=== PATIENT | female | born 1995 | race Caucasian/White ===

== ENCOUNTER 2022-04-30 08:44 | Emergency (ER) | payer BC, SELFPAY ==
--- NOTE | 2022-04-30 08:48 | ED.URI ---
HPI - URI/Sore Throat General Chief Complaint: Upper Respiratory Infection Stated Complaint: cold sx/sob Time Seen by Provider: 04/30/22 08:48 Source: patient Mode of arrival: ambulatory Limitations: no limitations History of Present Illness HPI Narrative: Ashley is a 26-year-old female patient presenting to the clinic today with complaints of cough, runny nose, and shortness of breath x1.5 weeks. She reports she has a history of asthma and she feels as though her chest is becoming more tight and is had bringing up some mucus. States that she is out of her albuterol inhaler and she is unable to get into her primary care at this time. Is having wheezing at nighttime. she denies any fever or chills. She denies any chest pain MD elicited complaint: cough, nasal congestion and other (Shortness of breath) Related Data Home Medications Medication Instructions Recorded Confirmed albuterol 2 puff inhalation DIRECTED 04/30/22 04/30/22 Allergies Allergy/AdvReac Type Severity Reaction Status Date / Time No Known Allergies Allergy Mild Verified 04/30/22 08:56 lactose Allergy Unknown Nausea Verified 04/30/22 08:56 montelukast Allergy Unknown severe Verified 04/30/22 08:56 headaches NKFA Allergy Mild Other Uncoded 04/30/22 08:56 Review of Systems Review of Systems: Pertinent positives per HPI. Patient denies any fever, chills, rash, headache, visual changes, dizziness, chest pain, palpitations, nausea, vomiting, diarrhea, constipation, abdominal pain, or any urinary issues. PMFSH Comments At the time of my signature, I reviewed and agree with the nursing past medical, surgical, social, and family history. There is no relevant family history pertinent to the patient complaint. Exam Narrative: General: Well-developed, well nourished, in no apparent distress Head: Normocephalic, atraumatic Eyes: Pupils equally round and reactive to light bilaterally, EOM intact, sclera and conjunctive clear, no discharge, lids normal Ears: TMs intact and clear, ear canals clear, no drainage, grossly hearing normal. Nose: Nares patent, clear nasal discharge, mild inflammation, no sinus tenderness. Mouth: Oral pharynx without lesions or masses, good dentition, MMM. Neck: Supple, trachea midline, no enlargement of anterior or posterior cervical nodes, no thyroid masses or goiter palpable. Cardio: Regular rate and rhythm, s1 and s2 normal, no murmur appreciated. Resp: Faint expiratory wheeze and the right mid lobe, no rhonchi, rales, or rubs Course Course Emergency Course: Portions of this record may have been created with voice recognition software. Level of Care: Express Care Visit Vital Signs Vital signs: Vital Signs Temperature 37.1 C 04/30/22 08:57 Pulse Rate 83 04/30/22 08:57 Respiratory Rate 20 04/30/22 08:57 Blood Pressure 153/86 H 04/30/22 08:57 Pulse Oximetry 98 04/30/22 08:57 Oxygen Delivery Room Air 04/30/22 08:57 Temperature 37.1 C 04/30/22 08:57 Pulse Rate 83 04/30/22 08:57 Respiratory Rate 20 04/30/22 08:57 Blood Pressure 153/86 H 04/30/22 08:57 Pulse Oximetry 98 04/30/22 08:57 Oxygen Delivery Room Air 04/30/22 08:57 Vital signs reviewed MDM - URI/Sore Throat MDM Narrative Medical decision making narrative: At the time of visit patient is resting comfortably on exam table. I suspect the patient has bronchitis. Prescription for albuterol and prednisone was sent to the pharmacy and supportive measures were discussed with the patient she voiced understanding of discharge instructions and agrees to treatment plan. Differential Diagnosis Differential diagnosis: Likely upper respiratory infection, sinusitis, viral infection, bronchitis, influenza, pharyngitis and other (COVID) Discharge Plan Discharge Clinical Impression: Bronchitis Patient Disposition: Home, Self-Care Condition: Stable Instructions: Antibiotic Form, Acute Bronchitis (ED) Additional Inst
[2022-04-30 08:57] VITALS: BP 153/86; PULSE 83; RESP 20; TEMP 37.1; O2SAT 98
== END 2022-04-30 09:06 | disposition home or self-care (01) ==
PROVIDERS: Emergency Provider Nurse Practitioner Family
DX: J40 Bronchitis, not specified as acute or chronic (principal)
CPT/HCPCS: 99213; G0463

== ENCOUNTER 2022-06-14 08:46 | Outpatient (CLI) | payer BC, SELFPAY ==
--- NOTE | 2022-06-14 12:55 | WPDPFTINT ---
PFT Procedure Performed PFT Procedure Performed Spirometry with Pre/Post Bronchodilator Plethysmography (Lung Vol) Diffusing Cap (DLCO) Flow Vol Loop PFT Interpretation Lung volumes were measured with the body plethysmography method. Lung volumes are unremarkable. Spirometry showed normal forced vital capacity and FEV1, diminished mid-expiratory flow rates and a diminished FEV1 to FVC ratio of 72% suggestive of obstructive airway disease. Following administration of a bronchodilator there was significant increase in the FEV1. The flow-volume loop is consistent with obstructive airway disease. Lung diffusion capacity is within the normal range at 96% predicted. The flow-volume loop is unremarkable. Impression: Mild obstructive airway disease with significant response to bronchodilators on this testing. Lung diffusion capacity within the normal range.
== END 2022-06-14 08:47 | disposition home or self-care (01) ==
LOC: ANHPFT 08:47
PROVIDERS: PCP Family Medicine; Visit Provider Family Medicine
DX: J45.909 Unspecified asthma, uncomplicated (principal); R94.2 Abnormal results of pulmonary function studies
CPT/HCPCS: 94060; 94726; 94729

== ENCOUNTER 2022-10-16 10:08 | Emergency (ER) | payer BC, SELFPAY ==
--- NOTE | 2022-10-16 10:14 | ED.UPPEXIN ---
HPI - Extremity Injury (Upper) General Chief Complaint: Extremity Problem,Nontraumatic Stated Complaint: Right Shoulder Pain Time Seen by Provider: 10/16/22 10:56 Source: patient and RN notes reviewed Mode of arrival: ambulatory Limitations: no limitations History of Present Illness HPI narrative: 26-year-old female presents with concern for one-month history of right shoulder pain. She reports pain started gradually. 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 Reports she has been taking Tylenol with some relief. She denies any redness, warmth. Denies fever. She reports in the morning after she wakes up she has some tingling in her 1st and 2nd digits. MD complaint: injury to: right and shoulder Related Data Home Medications Medication Instructions Recorded Confirmed cetirizine 10 mg tablet (Zyrtec) 10 mg PO DAILY PRN ALLERGIES 06/27/22 10/16/22 fluticasone propionate 50 2 spray intranasal DAILY 06/27/22 10/16/22 mcg/actuation nasal spray,suspension (Children's Flonase Allergy Relief) Allergies Allergy/AdvReac Type Severity Reaction Status Date / Time APPLES Allergy Other Uncoded 10/16/22 10:29 Review of Systems Review of Systems: CONSTITUTIONAL: Denies malaise, chills, sweats, or fever. SKIN: Denies rash or itching, open skin, laceration, abrasion, redness, warmth, swelling. MUSCULOSKELETAL: Reports right shoulder pain NEUROLOGIC: Denies numbness, weakness All systems reviewed & are unremarkable except as noted in HPI and below PMFSH Past Medical History Medical History History of gestational diabetes (~2019) History of pre-eclampsia (~2019) Seasonal allergies Seasonal asthma Vitamin D deficiency Social History Social History Smoking status: Never smoker Alcohol intake: current Substance use: never Substance use type: does not use Lack of Transportation: No Lack of Food: Never True Current Housing: I Have Housing Concerned About Future Housing: No Difficulty Paying Gas/Electric Bills: No Difficulty Paying for Meds: No Currently Unemployed: No Education: High School Diploma/GED Difficulty w/ Childcare or Family Care: No Living arrangements: with family Occupation/Education: occupation Gender identity (if verbalized by the patient): Female Agree to blood products: Yes Comments At time of signature, agree with nursing past medical, surgical, social and family history. There is no relevant family history pertinent to the presenting complaint Exam Narrative: GENERAL: Well-appearing, well-nourished, and in no acute distress. HEAD: Normocephalic, atraumatic. EYES: PERRLA, conjunctivae clear NECK: Supple. CHEST: Speaks in full sentences. No respiratory distress. HEART: Regular rate and rhythm. Normal and equal peripheral pulses. EXTREMITIES: Right shoulder has grossly normal strength and sensation, normal range of motion limited. No edema or ecchymosis. 5/5 strength with shoulder abduction adduction. Normal sensation with sensitivity to light touch and pain. Lateral shoulder tenderness. No open wounds, no skin tenting, no devitalized tissue or atrophy, no trophic changes, no obvious deformity, alignment normal, nearby joints and structures intact. Distal pulses palpable and equal bilaterally, skin warm, dry, pink. Capillary refill less than 3 seconds. SKIN: Warm, dry, no rash. NEURO: Alert and oriented x3. PSYCH: Normal mood and affect Course Course Emergency Course: Patient is aware of diagnosis, understands and agrees to treatment plan. Anticipatory guidance given. Patient agrees to follow-up as directed and is aware of reasons to seek care at the emergency department. Portions of this record may have been created with voice recognition software Level of Care: Express
[2022-10-16 10:22] VITALS: BP 135/82; PULSE 81; RESP 16; TEMP 37.3; O2SAT 100
== END 2022-10-16 11:06 | disposition home or self-care (01) ==
PROVIDERS: Emergency Provider Nurse Practitioner; PCP Family Medicine
DX: M25.511 Pain in right shoulder (principal); J45.909 Unspecified asthma, uncomplicated; E55.9 Vitamin D deficiency, unspecified
CPT/HCPCS: 99213; G0463

== ENCOUNTER 2023-03-10 14:43 | Outpatient (CLI) | payer BC, SELFPAY ==
--- NOTE | ~2023-03-10 | XR_ITS ---
EXAMINATION: XR chest 2V DATE: 03/10/2023 15:00 INDICATION: Acute upper respiratory infection TECHNIQUE: AP and lateral views of the chest are obtained. COMPARISON: None available FINDINGS: The lungs are free of acute opacities. No pleural effusion or pneumothorax. The cardiomedia stinal silhouette is normal. The visualized bones and soft tissues are unremarkable. IMPRESSION: 1. No acute cardiopulmonary abnormality. Reviewed, dictated and finalized at location F. O INTENSIVIST PHYSICIAN
[2023-03-10 16:25] LABS: Influenza A QL RT-PCR Negative (Negative); Influenza B QL RT-PCR Negative (Negative); RSV RNA, RT-PCR Negative (Negative); SARS-CoV-2 RNA PCR Negative (Negative)
== END 2023-03-10 14:44 | disposition home or self-care (01) ==
PROVIDERS: PCP Family Medicine; Visit Provider Family Medicine
DX: J06.9 Acute upper respiratory infection, unspecified (principal); Z20.822 Contact with and (suspected) exposure to COVID-19
CPT/HCPCS: 71046; 87637

== ENCOUNTER 2023-05-27 12:10 | Inpatient (IN) | payer MEDICAID, SELFPAY ==
[2023-05-27] VITALS (26 sets, daily range): BP systolic 121–175; BP diastolic 59–89; PULSE 88–116; RESP 16–36; TEMP 36.6–36.9; O2SAT 95–100; BMI 31.2
--- NOTE | ~2023-05-27 | US_ITS ---
EXAMINATION: US OB transvaginal INDICATION: preg of indetermined location TECHNIQUE: Sonography of the pelvis was performed by transabdominal and transvaginal techniques. COMPARISON: None. RESULT: Uterus: 9.2 x 5.6 x 6.6 cm. Anteverted, slightly retroflexed. Homogenous myometrium. The cervix is l mode and closed. Intrauterine gestational sac: Single present. Yolk sac is visualized. Embryo: Single present. [place] rump length: 0.43 cm, corresponding gestational age 6 weeks, 1 days. Gestational heart rate: present 115 bpm. Subgestational hematoma: Present encompassing approximately 30% of the gestational sac surface area . Right ovary: 4.1 x 3.1 x 3.3 cm. Vascular flow is present. Corpus luteal cyst. Left ovary: Obscured by bowel gas. Pelvis free fluid: None. IMPRESSION: Single, live intrauterine gestation.. Heart rate 115 bpm. Moderate subchorionic hemorrhage. Estimated Gestational Age: 6 weeks, 1 days by crown rump length. KELLY by ultrasound 01/19/2024. Reviewed, dictated and finalized at location K. IMPRESSION: Single, live intrauterine gestation.. Heart rate 115 bpm. Moderate subchorionic hemorrhage. Estimated Gestational Age: 6 weeks, 1 days by crown rump length. KELLY by ultras ound 01/19/2024.
--- NOTE | ~2023-05-27 | XR_ITS ---
XR chest 1V portable DATE: 05/27/2023 16:49 INDICATION: Pain TECHNIQUE: Single portable AP chest on May 27, 2023 at 1640 hours COMPARISON: 03/10/2023 2 view chest FINDINGS: Normal heart size. No hilar or mediastinal enlargement. No pulmonary consolidation, pleural effusion or pneumothorax. Pulmonary vascularity appears within upper normal range. Included skeletal structures are unremarkable. IMPRESSION: No active disease Reviewed, dictated and finalized at location B. IMPRESSION: No active disease
[2023-05-27] MEDS: ALBUTEROL SULFATE NEB 2.5 MG/3 ML INH INHALATION ×4 (12:46→16:19)
[2023-05-27] MEDS: IPRATROPIUM 0.5 MG/ALBUTEROL SULFATE 2.5 MG AMPUL.NEB 3 ML INHALATION ×2 (12:46→20:16)
--- NOTE | 2023-05-27 14:34 | ED.ASTHMA ---
HPI - Asthma General Chief Complaint: Asthma Stated Complaint: asthma Time Seen by Provider: 05/27/23 13:14 Source: patient Mode of arrival: ambulatory Limitations: no limitations History of Present Illness HPI Narrative: Patient presents with shortness of breath. She believes she is having an asthma exacerbation. Symptoms started approximately 7 or 8 pm and she ran out of her inhaler today. She has been having a cough and her chest feels tight and she can hear herself wheeze. She recently had a head cold . At baseline her asthma is well controlled usually only requiring occasional albuterol inhaler. She states she had previously been on a medication with a purple disc but this had been discontinued as her primary care physician believed that her asthma was allergy mediated so rather she is managed on nasal sprays and an [id number] allergy medication. She denies smoking. She has never required BiPAP or intubation for asthma exacerbation. Of note, patient had a positive home test. Her IUD was removed on 04/03/2023 and she did not have an interval menstrual period before becoming . She denies any abdominal pain, cramping, vaginal bleeding and has an appointment on Friday to establish care with coater operator insulation board Ramone/Mónica Tanner. Related Data Home Medications Medication Instructions Recorded Confirmed cetirizine 10 mg tablet (Zyrtec) 10 mg PO DAILY PRN ALLERGIES 06/27/22 05/27/23 Allergies Allergy/AdvReac Type Severity Reaction Status Date / Time APPLES Allergy Other Uncoded 05/27/23 12:30 [facility] Past Medical History Medical History History of gestational diabetes (~2019) History of pre-eclampsia (~2019) Seasonal allergies Seasonal asthma Vitamin D deficiency Family History Family History Sibling Asthma Social History Social History Smoking status: Never smoker Alcohol intake: never Substance use: never Substance use type: does not use Lack of Transportation: No Lack of Food: Never True Current Housing: I Have Housing Concerned About Future Housing: No Difficulty Paying Gas/Electric Bills: No Difficulty Paying for Meds: No Currently Unemployed: No Education: High School Diploma/GED Difficulty w/ Childcare or Family Care: No Living arrangements: with family Occupation/Education: occupation Gender identity (if verbalized by the patient): Female Spiritual care concerns: No Agree to blood products: Yes Exam Narrative: GENERAL: Well-appearing, well-nourished, HEAD: Normocephalic, atraumatic. EYES: Non injected, non icteric ENT: Nares clear, no rhinorrhea or epistaxis. NECK: Supple. CHEST: Diffuse bilateral wheezes on auscultation. Movign good air but tachypneic, RR 24-30. HEART: Tachycardic rate and rhythm. . ABDOMEN: Soft, nondistended. EXTREMITIES: Normal range of motion. No edema. SKIN: Warm, dry, no rash. NEURO: No focal deficits. Alert and oriented x3. PSYCH: Normal mood and affect. Course Vital Signs Vital signs: Vital Signs Temperature 97.8 F 05/27/23 12:16 Pulse Rate 110 H 05/27/23 12:16 Respiratory Rate 16 05/27/23 12:16 Blood Pressure 175/59 H 05/27/23 12:16 Pulse Oximetry 99 05/27/23 12:16 Oxygen Delivery Room Air 05/27/23 12:16 Temperature 97.5 F L 05/28/23 08:00 Pulse Rate 89 05/28/23 10:00 Respiratory Rate 21 H 05/28/23 09:14 Blood Pressure 127/67 05/28/23 08:00 Pulse Oximetry 98 05/28/23 08:29 Oxygen Delivery High Flow Nasal Cannula 05/28/23 08:29 Oxygen Flow Rate 9 05/28/23 08:29 Fraction of Inspired Oxygen 40 05/28/23 08:00 MDM - Asthma MDM Narrative Medical decision making narrative: The patient presented with cough and expiratory wheezing most likely due to asthma exacerbation. It is a m
[2023-05-27] MEDS: predniSONE 20 MG TABLET 40 MG PO (15:10)
[2023-05-27 16:56] LABS: Basophils Absolute Auto 0.1 K/mm3 (0.0-0.1); Basophils Percent Auto 0.5 % (0.2-1.2); Eosinophils Absolute Auto 0.4 K/mm3 (0-0.3); Eosinophils Percent Auto 3.6 % (0-4.4); Hematocrit 41.3 % (37.0-47.0); Immature Granulocyte Absolute 0.05 K/mm3 (0.00-0.031); Immature Granulocyte Percent A 0.4 % (0-0.5); Lymphocytes Absolute Auto 2.14 K/mm3 (0.9-3.2); Lymphocytes Percent Auto 17.7 % (18.3-44.2); Mean Corpuscular HGB Conc 33.9 g/dl (32-36); Mean Corpuscular Hemoglobin 29.5 pg (26-34); Mean Corpuscular Volume 87.1 fl (80-100); Mean Platelet Volume 10.3 fl (7.4-10.4); Monocytes Absolute Auto 0.5 K/mm3 (0.1-0.6); Monocytes Percent Auto 4.3 % (2.6-8.5); Neutrophils Absolute Auto 8.9 K/mm3 (1.3-6.7); Neutrophils Percent Auto 73.5 % (45.5-73.1); Platelet Count Result 258 k/mm3 (150-375); Red Blood Count 4.74 M/mm3 (4.2-5.4); Red Cell Distribution Width 13.7 % (11.5-14.5); White Blood Count 12.1 K/mm3 (4.5-10.0)
[2023-05-27 17:10] LABS: Anion Gap 9 mmol/L (4-12); Blood Urea Nitrogen 7 mg/dL (7-17); Calcium 9.6 mg/dL (8.4-10.2); Carbon Dioxide 20 mmol/L (22-30); Chloride 106 mmol/L (98-107); Estimated CRCL calculation 123 ml/min; Estimated Glomerular Filt Rate > 60; Glucose 115 mg/dL (65-110); Magnesium 2.1 mg/dL (1.6-2.3); Potassium 3.4 mmol/L (3.4-5.0); Sodium 135 mmol/L (137-145)
[2023-05-27] MEDS: MAGNESIUM SULF 1 GM/D5W 100 ML 1 GM/100 ML BAG IVPB (17:25)
[2023-05-27 17:32] LABS: Influenza A QL RT-PCR Negative (Negative); Influenza B QL RT-PCR Negative (Negative); RSV RNA, RT-PCR Negative (Negative); SARS-CoV-2 RNA PCR Negative (Negative)
[2023-05-27 17:36] LABS: D Dimer < 0.27 ug/mL (<0.48)
[2023-05-27] MEDS: ALBUTEROL SULFATE NEB 2.5 MG/3 ML INH 10 MG INHALATION (18:00)
--- NOTE | 2023-05-27 19:15 | PC.NURSE ---
Report given to Trudy ERICKSON, all questions answered.
--- NOTE | 2023-05-27 19:27 | PM.IMHP ---
H&P: HPI History of Present Illness Date/Time: 05/27/23 19:27 Chief Complaint: Short of breath Narrative: 27 years old a day with history of asthma, present ED with a chief complaint of cough, shortness a breath. Patient has been having cough in past 2 days, and developed shortness today. Patient denies fever, chills. Patient came to ED for evaluation and treatment, upon arrival in the ED, patient was afebrile, pressure stable. Patient was found have hypoxemia, and labored breathing. Patient received multiple treatments with albuterol and Atrovent nebulizer, magnesium sulfate, prednisone 40 mg 1 dose. Patient still had significant dyspnea, patient was placed on BiPAP. Labs showed leukocytosis 12,100, bicarbonate 20, hCG 18764. Patient states her intrauterine device was removed, and her last menstrual period was on April 03. Flu and COVID test negative. Chest x-ray shows no acute cardiopulmonary issues. Patient denies history of intubation for asthma exacerbation Review of Systems Review of Systems: ROS negative except above [facility] Past Medical History Medical History History of gestational diabetes (~2019) History of pre-eclampsia (~2019) Seasonal allergies Seasonal asthma Vitamin D deficiency Social History Social History Smoking status: Never smoker Alcohol intake: current Substance use: never Substance use type: does not use Lack of Transportation: No Lack of Food: Never True Current Housing: I Have Housing Concerned About Future Housing: No Difficulty Paying Gas/Electric Bills: No Difficulty Paying for Meds: No Currently Unemployed: No Education: High School Diploma/GED Difficulty w/ Childcare or Family Care: No Living arrangements: with family Occupation/Education: occupation Gender identity (if verbalized by the patient): Female Agree to blood products: Yes Meds Home Medications and Allergies Home Medications Medication Instructions Recorded Confirmed Type cetirizine 10 mg tablet (Zyrtec) 10 mg PO DAILY PRN ALLERGIES 06/27/22 02/11/23 History cyclobenzaprine 10 mg tablet 10 mg PO TID PRN muscle spasm #20 10/16/22 02/11/23 Rx tabs ibuprofen 800 mg tablet 800 mg PO Q6H PRN pain #30 tabs 10/16/22 02/11/23 Rx fluticasone 250 mcg-salmeterol 50 1 inh inhalation BID #60 ea 11/08/22 02/11/23 Rx mcg/dose blistr powdr for inhalation (Advair Diskus) albuterol sulfate 90 mcg/actuation 2 puff inhalation Q4-6H PRN 02/13/23 Rx aerosol inhaler shortness of breath or wheezing 30 days #8.5 grams azithromycin 250 mg tablet See Rx Instructions PO .COMPLEX #6 03/11/23 Rx (Zithromax Z-Jermaine) tabs fluticasone propionate 50 2 spray intranasal DAILY #16 grams 03/11/23 Rx mcg/actuation nasal spray,suspension (Children's Flonase Allergy Relief) Allergies Allergy/AdvReac Type Severity Reaction Status Date / Time APPLES Allergy Other Uncoded 05/27/23 12:30 Vital Signs Vital Signs - 24 hr 05/27/23 12:16 05/27/23 12:28 05/27/23 12:28 Temperature 97.8 F 97.9 F Pulse Rate 110 H 103 H 108 H Respiratory Rate 16 18 Blood Pressure 175/59 H 166/89 H Pulse Oximetry 99 97 Oxygen Delivery Room Air Room Air 05/27/23 12:28 05/27/23 12:34 05/27/23 12:35 Temperature Pulse Rate Respiratory Rate Blood Pressure Pulse Oximetry 99 97 97 Oxygen Delivery Room Air Room Air Room Air 05/27/23 12:46 05/27/23 13:01 05/27/23 14:52 Temperature Pulse Rate 99 102 H 107 H Respiratory Rate 21 H 22 H 21 H Blood Pressure Pulse Oximetry Oxygen Delivery 05/27/23 14:30 05/27/23 14:55 05/27/23 15:07 Temperature Pulse Rate 97 108 H Respiratory Rate 16 22 H Blood Pressure 122/69 Pulse Oximetry 97 98 Oxygen Delivery Room Air 05/27/23 15:11 05/27/23 16:04 05/27/23 16:19 Temperature Pulse Rat
[2023-05-27 19:59] LABS: Alveolar/Arterial O2 Gradient 166.7 mmHg; Base Excess ABG -3.6 mEq/l (+/-2.0); Fractional Inspired Oxygen 40 %; HCO3 ABG 18.2 mEq/l (22.0-26.0); Oxygen Content ABG 19.8 %vol (16.0-22.0); Oxygen Saturation ABG 97.4 % (95.0-100.0); Oxyhemoglobin 95.6 % THb (90.0-100.0); PCO2 ABG 25.4 mmHg (35.0-45.0); PO2 ABG 89.3 mmHg (80.0-100.0); PO2 FiO2 Ratio Arterial Blood 2.23 %; Total Hemoglobin 14.7 g/dL (12.0-18.0); pH ABG 7.473 (7.350-7.450)
[2023-05-27] MEDS: MONTELUKAST SODIUM 10 MG TABLET PO (19:59)
[2023-05-27 20:01] LABS: Device BIPAP; Expiratory Pressure 7 cmH2O; Inspiratory Pressure 10 cmH2O; Modified Allen's Test Pass; Site Drawn RIGHT RADIAL
[2023-05-27] MEDS: BUDESONIDE RESPULE NEB 0.5 MG/2 ML AMP 0.75 MG INHALATION (20:16)
--- NOTE | 2023-05-27 21:42 | ADMIMU ---
2140: This patient, Ashley A Bouck, was admitted to IMU status, and placed in Intensive Care Unit-9. Patient/family oriented to hospital policies and: general routines including ID bracelet, bed and alarms, visiting hours, pain management, procedures, bathroom and other care routines, personal items, smoking policy, room service/diet, and visiting hours. Valuables list has been completed. Information on how to activate the Rapid Response Team has been discussed. Patient/Family are encouraged to report perceived risks to care and to ask questions if they do not understand what they are told or what they should do.
[2023-05-27] MEDS: SODIUM CHLORIDE 0.9% IV 1,000 ML 125 ML IV CONT (22:16)
[2023-05-27 22:42] LABS: Appearance Urine Cloudy (Clear); Bilirubin Urine Negative (Negative); Blood Urine Negative (Negative); Color Urine Yellow (Yellow); Glucose Urine UA Negative (Negative); Ketones Urine 3+ mg/dL (Negative); Leukocyte Esterase Ur Negative LEU/UL (Negative); Nitrate Urine Negative (Negative); Protein Urine 1+ mg/dL (Negative); Urobilinogen Urine 0.2 mg/dL (<2.0)
[2023-05-27 22:52] LABS: Bacteria Urine None Seen /hpf; Non Pathogenic Casts 0-2; RBC Urine 0-2 /hpf (0-2); Squamous Epithelial Cell Urine Occasional /hpf (Few); WBC Urine 0-5 /hpf (0-3)
[2023-05-27 23:08] LABS: Add Urine Microscopic? YES; Specific Grav Ur 1.034 (1.001-1.035)
[2023-05-28] VITALS (30 sets, daily range): BP systolic 123–140; BP diastolic 66–72; PULSE 64–105; RESP 18–33; TEMP 36.4–36.9; O2SAT 95–99
[2023-05-28 01:41] LABS: Glucose Point of Care 117 mg/dl (65-105)
[2023-05-28] MEDS: IPRATROPIUM 0.5 MG/ALBUTEROL SULFATE 2.5 MG AMPUL.NEB 3 ML INHALATION ×6 (02:13→23:17)
[2023-05-28 04:06] LABS: Hemoglobin 12.7 g/dL (12.0-15.0); Mean Corpuscular HGB Conc 31.8 g/dl (32-36); Mean Corpuscular Hemoglobin 28.9 pg (26-34); Mean Corpuscular Volume 91.1 fl (80-100); Mean Platelet Volume 10.4 fl (7.4-10.4); Platelet Count Result 269 k/mm3 (150-375); Red Blood Count 4.39 M/mm3 (4.2-5.4); Red Cell Distribution Width 13.4 % (11.5-14.5); White Blood Count 13.7 K/mm3 (4.5-10.0)
[2023-05-28 04:17] LABS: Anion Gap 8 mmol/L (4-12); Blood Urea Nitrogen 10 mg/dL (7-17); Carbon Dioxide 18 mmol/L (22-30); Chloride 107 mmol/L (98-107); Estimated CRCL calculation 123 ml/min; Estimated Glomerular Filt Rate > 60; Glucose 101 mg/dL (65-110); Magnesium 2.3 mg/dL (1.6-2.3); Potassium 3.8 mmol/L (3.4-5.0); Sodium 133 mmol/L (137-145)
[2023-05-28] MEDS: SODIUM CHLORIDE 0.9% IV 1,000 ML 125 ML IV CONT (06:08)
--- NOTE | 2023-05-28 07:08 | PM.IMHP ---
H&P: HPI History of Present Illness Date/Time: 05/28/23 07:08 Chief Complaint: Acute asthmatic exacerbation Narrative: 27-year-old 2 para 1 1st trimester seen through the ER with shortness of breath. She was begun on steroids and breathing treatments and is improving. Ultrasound shows normal 1st trimester as there was a concern of location following removal recently of an IUD. [facility] Past Medical History Medical History History of gestational diabetes (~2019) History of pre-eclampsia (~2019) Seasonal allergies Seasonal asthma Vitamin D deficiency Family History Family History Sibling Asthma Social History Social History Smoking status: Never smoker Alcohol intake: never Substance use: never Substance use type: does not use Lack of Transportation: No Lack of Food: Never True Current Housing: I Have Housing Concerned About Future Housing: No Difficulty Paying Gas/Electric Bills: No Difficulty Paying for Meds: No Currently Unemployed: No Education: High School Diploma/GED Difficulty w/ Childcare or Family Care: No Living arrangements: with family Occupation/Education: occupation Gender identity (if verbalized by the patient): Female Spiritual care concerns: No Agree to blood products: Yes Meds Home Medications and Allergies Home Medications Medication Instructions Recorded Confirmed Type cetirizine 10 mg tablet (Zyrtec) 10 mg PO DAILY PRN ALLERGIES 06/27/22 05/27/23 History albuterol sulfate 90 mcg/actuation 2 puff inhalation Q4-6H PRN 02/13/23 05/27/23 Rx aerosol inhaler shortness of breath or wheezing 30 days #8.5 grams fluticasone propionate 50 2 spray intranasal DAILY #16 grams 03/11/23 05/27/23 Rx mcg/actuation nasal spray,suspension (Children's Flonase Allergy Relief) Allergies Allergy/AdvReac Type Severity Reaction Status Date / Time APPLES Allergy Other Uncoded 05/27/23 12:30 Vital Signs Vital Signs - 24 hr 05/27/23 12:16 05/27/23 12:28 05/27/23 12:28 Temperature 97.8 F 97.9 F Pulse Rate 110 H 103 H 108 H Respiratory Rate 16 18 Blood Pressure 175/59 H 166/89 H Pulse Oximetry 99 97 Oxygen Delivery Room Air Room Air Fraction of Inspired Oxygen 05/27/23 12:28 05/27/23 12:34 05/27/23 12:35 Temperature Pulse Rate Respiratory Rate Blood Pressure Pulse Oximetry 99 97 97 Oxygen Delivery Room Air Room Air Room Air Fraction of Inspired Oxygen 05/27/23 12:46 05/27/23 13:01 05/27/23 14:52 Temperature Pulse Rate 99 102 H 107 H Respiratory Rate 21 H 22 H 21 H Blood Pressure Pulse Oximetry Oxygen Delivery Fraction of Inspired Oxygen 05/27/23 14:30 05/27/23 14:55 05/27/23 15:07 Temperature Pulse Rate 97 108 H Respiratory Rate 16 22 H Blood Pressure 122/69 Pulse Oximetry 97 98 Oxygen Delivery Room Air Fraction of Inspired Oxygen 05/27/23 15:11 05/27/23 16:04 05/27/23 16:19 Temperature Pulse Rate 112 H 109 H Respiratory Rate 23 H 20 Blood Pressure 129/85 Pulse Oximetry 97 95 Oxygen Delivery Room Air Fraction of Inspired Oxygen 05/27/23 16:27 05/27/23 17:29 05/27/23 17:29 Temperature Pulse Rate 116 H 96 Respiratory Rate 24 H 27 H Blood Pressure 130/75 Pulse Oximetry 99 98 Oxygen Delivery BiPAP Fraction of Inspired Oxygen 05/27/23 17:26 05/27/23 18:02 05/27/23 18:41 Temperature Pulse Rate 96 97 109 H Respiratory Rate 33 H 26 H 33 H Blood Pressure 121/77 Pulse Oximetry 99 100 Oxygen Delivery BiPAP Fraction of Inspired Oxygen 05/27/23 19:13 05/27/23 19:25 05/27/23 19:25 Temperature Pulse Rate 106 H 106 H Respiratory Rate 36 H 36 H Blood Pressure Pulse Oximetry 96 97 Oxygen Delivery Room Air BiPA
[2023-05-28] MEDS: MULTIVIT/MIN/PREN/FOL AC/IRON TABLET 1 TAB PO (08:26)
[2023-05-28] MEDS: BUDESONIDE RESPULE NEB 0.5 MG/2 ML AMP 0.75 MG INHALATION (08:49)
--- NOTE | 2023-05-28 09:09 | PM.IMPN ---
Progress Note: A&P Assessment and Plan (1) Acute respiratory failure with hypoxemia: Code(s): J96.01 - Acute respiratory failure with hypoxia Status: Acute (2) Asthma exacerbation: Code(s): J45.901 - Unspecified asthma with (acute) exacerbation Status: Acute (3) URI (upper respiratory infection): Qualifiers: URI type: unspecified URI Qualified Code(s): J06.9 - Acute upper respiratory infection, unspecified Code(s): J06.9 - Acute upper respiratory infection, unspecified Status: Acute (4) Sepsis: Code(s): A41.9 - Sepsis, unspecified organism Status: Acute (5) SIRS (systemic inflammatory response syndrome): Code(s): R65.10 - Systemic inflammatory response syndrome (SIRS) of non-infectious origin without acute organ dysfunction Status: Acute (6) : Code(s): Z34.90 - Encounter for supervision of normal , unspecified, unspecified trimester Status: Acute Plan Asthma exacerbation Patient has a history of asthma Patient has been having cough in past 2 days, and developed severe dyspnea Upon arrival in ED, patient was found have a deeper breath a Patient received multiple doses of albuterol nebulizer, prednisone p.o. 40 mg once, patient still has severe dyspnea Start Pulmicort nebulizer 0.75 mg once and q.12 hour Start Singulair 10 mg once a day Start DuoNeb scheduled q.6 hours, albuterol nebulizer q.4 hours as needed 4/3: Patient feels better today, shortness of breath is improving Consult trestle mechanic follow recommendations Acute respiratory failure with hypoxemia Patient is placed on BiPAP BMP showed metabolic acidosis, bicarb 20, Follow ABG: PH is 7.473, pCO2 25.4, PO2 89.3, bicarb 18.2 Continue BiPAP and O2 therapy to keep pulse ox above 92 4/3: Patient needs BiPAP overnight, now patient is on high-flow oxygen Sepsis versus SIRS Patient has leukocytosis 12,100 with left shift, Patient has a cough, flu and COVID negative X-ray shows no acute issues Suspecting sirs due to acute upper respiratory tract infection Follow-up blood culture, urine analysis Start azithromycin p.o., ceftriaxone 2 g IV daily Follow-up procalcitonin HCG 17,835 Intrauterine device was removed on fiber 8 Pending ultrasound ER physician consulted Ob Follow recommendation 05/27 US reported Single, live intrauterine gestation.. Heart rate 115 bpm. Moderate subchorionic hemorrhage. Estimated Gestational Age:? 6 weeks, 1 days by crown rump length. KELLY by ultrasound 01/19/2024. Appreciate Ob consultation, management per Ob Subjective Date/time seen: 05/28/23 09:09 Interval history: I saw exam patient today in presents of patient's mother. Patient feels better today, patient needed BiPAP overnight, now patient is high-flow oxygen. Patient still has chest tightness, dry cough, denies abdomen pain, nausea vomiting diarrhea. Patient afebrile overnight, leukocytosis persists, Exam Narrative: GENERAL: Pleasant, in no acute distress. Well-nourished. - EYES: EOMI. Anicteric. - HENT: Moist mucous membranes. - LUNGS: Decreased air entry bilaterally Wheezing bilaterally, wheezing is improving, tachypnea - CARDIOVASCULAR: Regular rate and rhythm. No murmur. No JVD. - ABDOMEN: Soft, non-tender and non-distended. No palpable masses. - EXTREMITIES: No edema. Peripheral pulses 2+. Non-tender. - NEUROLOGIC: No focal neurological deficits. CN II-XII grossly intact. - PSYCHIATRIC: Awake, Alert and oriented x 3. Appropriate mood and affect. - SKIN: No rashes or lesions. Warm. - LYMPH: No cervical lymphadenopathy. Objective Data Vital Signs Vital Signs: Vital Signs - 24 hr 05/27/23 12:16 05/27/23 12:28 05/27/23 12:28 Temperature 97.8 F 97.9 F Pulse Rate 110 H 103 H 108 H Respiratory Rate 16 18 Blood Pressure 175/59 H 166/89 H Pulse Oximetry 99 97 Oxygen Delivery Room Air Room Air Oxygen Flow Rate Fraction of
--- NOTE | 2023-05-28 11:20 | PM.CNPUL ---
Assessment and Plan Assessment and plan (1) Asthma exacerbation: Code(s): J45.901 - Unspecified asthma with (acute) exacerbation Status: Acute Assessment and Plan: Patient has a history of asthma diagnosed at age less than 1 year, required medicines since then. Patient is Advair was discontinued in 10 and she was on Zyrtec, Flonase and albuterol p.r.n.. She remained uncontrolled clinically with wheezes, nocturnal awakenings, activity limitations. Patient is is also and with previous she had worsening asthma in her 2nd and 3rd trimester. Currently the patient has an asthma exacerbation and she is 80% back to normal after receiving prednisone, bronchodilators, montelukast, azithromycin. Her D-dimer is negative. Her chest x-ray is negative. Her COVID, influenza and RSV RT PCR is negative. Her eosinophil count on admission was 435 per micro L. Plan: Patient has diffuse inspiratory and expiratory wheezes currently I will place her on Solu-Medrol 20 mg IV q.6 hours. She has no evidence of an infection and I will discontinue azithromycin. I will increase the frequency of her DuoNeb from q.6 hours to q.4 hours. I will decrease her nebulized budesonide to 0.5 mg q.12 hours. I will discontinue her montelukast at this time and see if we can control her with steroids and bronchodilators alone. Patient is and her goal saturation should be greater than 95 and I will wean her oxygen accordingly. Currently she is on 3 L nasal cannula. Will follow with you. History of Present Illness History of Present Illness Consult date: 05/28/23 Chief complaint: Asthma Exacerbation om BIPAP Narrative: 05/28/2023: This is a new patient consult for asthma exacerbation requiring BiPAP. Patient has a history of asthma diagnosed under 1 year. She was treated with albuterol and has been on medications on and off since then. She was admitted to the hospital yearly in December as a kid up until age 10 and since then has not been admitted to the hospital. At age 7 she had snoring and was diagnosed with obstructive sleep apnea and had her adenoids removed. Her snoring improved after that but she never had a repeat sleep study. The patient tells me she has never been intubated. The patient had an ASA a survey [place] in January of 2024 requiring prednisone. Her previous exacerbation to that was in April of 2022 requiring prednisone. On 06/14/2022 the patient had PFTs demonstrated a mild obstructive defect with a normal FEV1, bronch positive bronchodilator response and normal lung volumes and normal DLCO. The patient had been maintained on Advair and in December of 2022 her PCP discontinue the Advair as it was felt she had only seasonal allergy. She was started on Zyrtec and Flonase 1 spray q.day. She was prescribed rescue albuterol. The patient did well and was using rescue albuterol 1 time every 2 weeks but had persistent wheezing, nocturnal awakenings 1 to 2 times a month and could only walk 1/2 of mi and would have to stop for shortness of breath. Her activity was limited as she could not walk up stairs without having shortness of breath. Patient's triggers include weather changes, dust, pollen, perfumes. She is now in during her 1st during her 2nd and 3rd trimester her asthma worsened. The patient smoked half a pack a day from age [age] for total of 2 pack years. From age [age] the patient vape nicotine at approximately 30 inhalations a week. The patient has not done any vaping the last 6 weeks since she found out she was . The patient denies illicit drug use, sandblasting, welding, asbestos work or professional painting. 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 She does not plan on returning to this job in the future. This current episode started on 05/22 in which she had s
[2023-05-28] MEDS: methylPREDNISolone SOD SUCC 40 MG VIAL 20 MG IV PUSH ×3 (14:10→23:24)
[2023-05-28] MEDS: BUDESONIDE RESPULE NEB 0.5 MG/2 ML AMP INHALATION (20:16)
[2023-05-29] VITALS (20 sets, daily range): BP systolic 129–142; BP diastolic 64–72; PULSE 78–120; RESP 16–20; TEMP 36.7–37.5; O2SAT 92–97
[2023-05-29] MEDS: IPRATROPIUM 0.5 MG/ALBUTEROL SULFATE 2.5 MG AMPUL.NEB 3 ML INHALATION ×5 (03:01→20:39)
[2023-05-29] MEDS: methylPREDNISolone SOD SUCC 40 MG VIAL 20 MG IV PUSH (05:05)
--- NOTE | 2023-05-29 06:54 | PM.OBPNVD ---
OB - PN: Subj Subjective Date/time seen: 05/29/23 06:54 Interval history: I saw exam patient today in presents of patient's mother. Patient feels better today, patient needed BiPAP overnight, now patient is high-flow oxygen. Patient still has chest tightness, dry cough, denies abdomen pain, nausea vomiting diarrhea. Patient afebrile overnight, leukocytosis persists, OB - PN: Obj Data Labs 05/28/23 03:56 05/28/23 03:56 OB - PN A/P Time Spent With Patient Time: Total time spent is greater than 50% in coordination of care (as documented) at patient's floor/unit and/or counseling patient:
--- NOTE | 2023-05-29 06:55 | PM.OBPNVD ---
OB - PN: Subj Subjective Date/time seen: 05/29/23 06:55 Patient comments: tolerating diet and other (breathing more easily) OB - PN: Obj Data Labs 05/28/23 03:56 05/28/23 03:56 OB - PN A/P Plan Comments: cotinue iv steroids and nebs Time Spent With Patient Time: Total time spent is greater than 50% in coordination of care (as documented) at patient's floor/unit and/or counseling patient: Time with patient: less than 15 minutes Exam Const: General: cooperative, healthy appearing and comfortable Nutritional Appearance: average body habitus Orientation/consciousness: oriented to person, oriented to place and oriented to time Resp: Effort & Inspection: normal respiratory effort (less wheezing) Cardio: Rate: regular rate Rhythm: regular rhythm Heart sounds: S1 normal heart sound present and S2 normal heart sound present GI: Inspection: normal to inspection
--- NOTE | 2023-05-29 07:38 | PM.IMPN ---
Progress Note: A&P Assessment and Plan (1) Acute respiratory failure with hypoxemia: Code(s): J96.01 - Acute respiratory failure with hypoxia Status: Acute (2) Asthma exacerbation: Code(s): J45.901 - Unspecified asthma with (acute) exacerbation Status: Acute (3) URI (upper respiratory infection): Qualifiers: URI type: unspecified URI Qualified Code(s): J06.9 - Acute upper respiratory infection, unspecified Code(s): J06.9 - Acute upper respiratory infection, unspecified Status: Acute (4) Sepsis: Code(s): A41.9 - Sepsis, unspecified organism Status: Acute (5) SIRS (systemic inflammatory response syndrome): Code(s): R65.10 - Systemic inflammatory response syndrome (SIRS) of non-infectious origin without acute organ dysfunction Status: Acute (6) : Code(s): Z34.90 - Encounter for supervision of normal , unspecified, unspecified trimester Status: Acute Plan Asthma exacerbation Patient has a history of asthma Patient has been having cough in past 2 days, and developed severe dyspnea Upon arrival in ED, patient was found have a deeper breath a Patient received multiple doses of albuterol nebulizer, prednisone p.o. 40 mg once, patient still has severe dyspnea Start Pulmicort nebulizer 0.75 mg once and q.12 hour Start Singulair 10 mg once a day Start DuoNeb scheduled q.6 hours, albuterol nebulizer q.4 hours as needed 4/3: Patient feels better today, shortness of breath is improving Consult shipping supervisor follow recommendations add methylprednisolone and discontinue Singulair per shipping supervisor Acute respiratory failure with hypoxemia Patient is placed on BiPAP BMP showed metabolic acidosis, bicarb 20, Follow ABG: PH is 7.473, pCO2 25.4, PO2 89.3, bicarb 18.2 Continue BiPAP and O2 therapy to keep pulse ox above 92 4/3: Patient needs BiPAP overnight, now patient is on high-flow oxygen Sepsis versus SIRS Patient has leukocytosis 12,100 with left shift, Patient has a cough, flu and COVID negative X-ray shows no acute issues Suspecting sirs due to acute upper respiratory tract infection Follow-up blood culture, urine analysis Start azithromycin p.o., ceftriaxone 2 g IV daily Follow-up procalcitonin low dc abx HCG 17,835 Intrauterine device was removed on fiber 8 Pending ultrasound ER physician consulted Ob Follow recommendation 05/27 US reported Single, live intrauterine gestation.. Heart rate 115 bpm. Moderate subchorionic hemorrhage. Estimated Gestational Age:? 6 weeks, 1 days by crown rump length. KELLY by ultrasound 01/19/2024. Appreciate Ob consultation, management per Ob Subjective Date/time seen: 05/29/23 07:38 Interval history: I saw exam patient in presents of patient's mother, patient feels better today, no obvious distress, still has cough without phlegm. Patient denies abdomen pain, nausea vomiting, abdominal discharge from vagina. Patient did not need BiPAP during the night Exam Narrative: GENERAL: Pleasant, in no acute distress. Well-nourished. - EYES: EOMI. Anicteric. - HENT: Moist mucous membranes. - LUNGS: Decreased air entry bilaterally Wheezing bilaterally, wheezing is improving, tachypnea - CARDIOVASCULAR: Regular rate and rhythm. No murmur. No JVD. - ABDOMEN: Soft, non-tender and non-distended. No palpable masses. - EXTREMITIES: No edema. Peripheral pulses 2+. Non-tender. - NEUROLOGIC: No focal neurological deficits. CN II-XII grossly intact. - PSYCHIATRIC: Awake, Alert and oriented x 3. Appropriate mood and affect. - SKIN: No rashes or lesions. Warm. - LYMPH: No cervical lymphadenopathy. Objective Data Vital Signs Vital Signs: Vital Signs - 24 hr 05/28/23 08:00 05/28/23 08:00 05/28/23 08:25 Temperature 97.5 F L Pulse Rate 64 Respiratory Rate 22 H Blood Pressure 140/69 Pulse Oximetry 98 99 97 Oxygen Delivery BiPAP High Flow Therapy with Na Oxy
[2023-05-29] MEDS: BUDESONIDE RESPULE NEB 0.5 MG/2 ML AMP INHALATION ×2 (08:14→20:39)
--- NOTE | 2023-05-29 08:18 | PM.PNPUL ---
Progress Note: A&P Assessment and Plan (1) Asthma exacerbation: Code(s): J45.901 - Unspecified asthma with (acute) exacerbation Status: Acute Assessment and Plan: Patient has a history of asthma diagnosed at age less than 1 year, required medicines since then. Patient is Advair was discontinued in and she was on Zyrtec, Flonase and albuterol p.r.n.. She remained uncontrolled clinically with wheezes, nocturnal awakenings, activity limitations. Patient is is also and with previous she had worsening asthma in her 2nd and 3rd trimester. Currently the patient has an asthma exacerbation and she is 80% back to normal after receiving prednisone, bronchodilators, montelukast, azithromycin. Her D-dimer is negative. Her chest x-ray is negative. Her COVID, influenza and RSV RT PCR is negative. Her eosinophil count on admission was 435 per micro L. Plan: Patient has diffuse inspiratory and expiratory wheezes currently I will place her on Solu-Medrol 20 mg IV q.6 hours. She has no evidence of an infection and I will discontinue azithromycin. I will increase the frequency of her DuoNeb from q.6 hours to q.4 hours. I will decrease her nebulized budesonide to 0.5 mg q.12 hours. I will discontinue her montelukast at this time and see if we can control her with steroids and bronchodilators alone. Patient is and her goal saturation should be greater than 95 and I will wean her oxygen accordingly. Currently she is on 3 L nasal cannula. Will follow with you. 05/29/23: Needs to improve but still feels her breathing is tight. Her cough is back to her baseline. She has minimal phlegm. She has walked in her room to the restroom and has no complaints of dyspnea on exertion. When I enter the room she was on 2 L nasal cannula saturations 96%. I decreased her to room air and after 6 minutes her saturations were 92%. She had no wheezing on normal respiration. Plan: I will discontinue her Solu-Medrol [address] her on prednisone 40 mg 1st dose today. I will continue DuoNebs q.4 hours and continued nebulized budesonide 0.5 mg q.12 hours. Goal saturation 90-94% and wean FiO2 accordingly. If the patient remains clinically stable will consider discharge on 05/30/2023 on these pulmonary medications: Prednisone 40 mg p.o. q.day times 3 days Symbicort 160-4.5 at 2 puffs b.i.d.. Rescue Symbicort 160-4.5 at 1-2 puffs q.4 hours p.r.n. shortness of breath or wheezing cetirizine 10 mg p.o. q.day p.r.n. sinus congestion. Flonase 2 sprays each nostril twice a day p.r.n. nasal congestion. Discussed with Dr. Tanner, will follow with you Subjective Date/time seen: 05/29/23 08:18 Interval history: ?05/28/2023:? This is a new patient consult for asthma exacerbation requiring BiPAP.? Patient has a history of asthma diagnosed under 1 year.? She was treated with albuterol and has been on medications on and off since then.? She was admitted to the hospital yearly in December as a kid up until age 10 and since then has not been admitted to the hospital. ? At age 7 she had snoring and was diagnosed with obstructive sleep apnea and had her adenoids removed.? Her snoring improved after that but she never had a repeat sleep study. The patient tells me she has never been intubated.? The patient had an ASA a survey [place] in January of 2024 requiring prednisone.? Her previous exacerbation to that was in April of 2022 requiring prednisone. On 06/14/2022 the patient had PFTs demonstrated a mild obstructive defect with a normal FEV1, bronch positive bronchodilator response and normal lung volumes and normal DLCO.? The patient had been maintained on Advair and in December of 2022 her PCP discontinue the Advair as it was felt she had only seasonal allergy.? She was started on Zyrtec and Flonase 1 spray q.day.? She was prescribed rescue albuterol.? The patient did well and was using rescue albuterol 1 time every 2 weeks but had p
[2023-05-29 08:50] LABS: Basophils Percent Auto 0.1 % (0.2-1.2); Hematocrit 41.8 % (37.0-47.0); Hemoglobin 13.8 g/dL (12.0-15.0); Immature Granulocyte Absolute 0.11 K/mm3 (0.00-0.031); Immature Granulocyte Percent A 0.5 % (0-0.5); Lymphocytes Percent Auto 9.2 % (18.3-44.2); Mean Corpuscular Hemoglobin 29.1 pg (26-34); Mean Corpuscular Volume 88.2 fl (80-100); Mean Platelet Volume 10.5 fl (7.4-10.4); Monocytes Absolute Auto 0.4 K/mm3 (0.1-0.6); Monocytes Percent Auto 1.8 % (2.6-8.5); Neutrophils Absolute Auto 18.3 K/mm3 (1.3-6.7); Neutrophils Percent Auto 88.4 % (45.5-73.1); Platelet Count Result 299 k/mm3 (150-375); Red Blood Count 4.74 M/mm3 (4.2-5.4); Red Cell Distribution Width 13.3 % (11.5-14.5); White Blood Count 20.7 K/mm3 (4.5-10.0)
[2023-05-29] MEDS: predniSONE 20 MG TABLET 40 MG PO (09:17)
[2023-05-29] MEDS: MULTIVIT/MIN/PREN/FOL AC/IRON TABLET 1 TAB PO (09:17)
[2023-05-29 09:31] LABS: Anion Gap 11 mmol/L (4-12); Blood Urea Nitrogen 11 mg/dL (7-17); Calcium 10.2 mg/dL (8.4-10.2); Carbon Dioxide 19 mmol/L (22-30); Chloride 105 mmol/L (98-107); Estimated CRCL calculation 123 ml/min; Estimated Glomerular Filt Rate > 60; Glucose 122 mg/dL (65-110); Potassium 4.2 mmol/L (3.4-5.0); Sodium 135 mmol/L (137-145)
--- NOTE | 2023-05-29 13:25 | PCCCNOTE ---
On 05/29/23, the student, Taylor Ramirez, provided care and completed [facility] documentation on this patient. I have reviewed the student's documentation and agree with the findings.
[2023-05-30] VITALS (8 sets, daily range): BP systolic 111; BP diastolic 64; PULSE 86–105; RESP 16–20; TEMP 36.4; O2SAT 95
[2023-05-30] MEDS: IPRATROPIUM 0.5 MG/ALBUTEROL SULFATE 2.5 MG AMPUL.NEB 3 ML INHALATION ×3 (00:37→08:15)
[2023-05-30 07:33] LABS: Basophils Absolute Auto 0.1 K/mm3 (0.0-0.1); Basophils Percent Auto 0.4 % (0.2-1.2); Eosinophils Absolute Auto 0.1 K/mm3 (0-0.3); Eosinophils Percent Auto 0.7 % (0-4.4); Hemoglobin 12.7 g/dL (12.0-15.0); Immature Granulocyte Absolute 0.19 K/mm3 (0.00-0.031); Lymphocytes Absolute Auto 5.74 K/mm3 (0.9-3.2); Lymphocytes Percent Auto 31.2 % (18.3-44.2); Mean Corpuscular HGB Conc 32.6 g/dl (32-36); Mean Platelet Volume 10.2 fl (7.4-10.4); Monocytes Absolute Auto 1.6 K/mm3 (0.1-0.6); Monocytes Percent Auto 8.7 % (2.6-8.5); Neutrophils Absolute Auto 10.7 K/mm3 (1.3-6.7); Platelet Count Result 278 k/mm3 (150-375); Red Blood Count 4.38 M/mm3 (4.2-5.4); Red Cell Distribution Width 13.5 % (11.5-14.5); White Blood Count 18.4 K/mm3 (4.5-10.0)
[2023-05-30 07:46] LABS: Anion Gap 11 mmol/L (4-12); Blood Urea Nitrogen 11 mg/dL (7-17); Calcium 9.4 mg/dL (8.4-10.2); Carbon Dioxide 18 mmol/L (22-30); Chloride 105 mmol/L (98-107); Estimated CRCL calculation 124 ml/min; Estimated Glomerular Filt Rate > 60; Glucose 98 mg/dL (65-110); Potassium 3.4 mmol/L (3.4-5.0); Sodium 134 mmol/L (137-145)
--- NOTE | 2023-05-30 07:48 | PM.IMPN ---
Progress Note: A&P Assessment and Plan (1) Acute respiratory failure with hypoxemia: Code(s): J96.01 - Acute respiratory failure with hypoxia Status: Acute (2) Asthma exacerbation: Code(s): J45.901 - Unspecified asthma with (acute) exacerbation Status: Acute (3) URI (upper respiratory infection): Qualifiers: URI type: unspecified URI Qualified Code(s): J06.9 - Acute upper respiratory infection, unspecified Code(s): J06.9 - Acute upper respiratory infection, unspecified Status: Acute (4) Sepsis: Code(s): A41.9 - Sepsis, unspecified organism Status: Acute (5) SIRS (systemic inflammatory response syndrome): Code(s): R65.10 - Systemic inflammatory response syndrome (SIRS) of non-infectious origin without acute organ dysfunction Status: Acute (6) : Code(s): Z34.90 - Encounter for supervision of normal , unspecified, unspecified trimester Status: Acute Plan Asthma exacerbation Patient has a history of asthma Patient has been having cough in past 2 days, and developed severe dyspnea Upon arrival in ED, patient was found have a deeper breath a Patient received multiple doses of albuterol nebulizer, prednisone p.o. 40 mg once, patient still has severe dyspnea Start Pulmicort nebulizer 0.75 mg once and q.12 hour Start Singulair 10 mg once a day Start DuoNeb scheduled q.6 hours, albuterol nebulizer q.4 hours as needed 4/3: Patient feels better today, shortness of breath is improving Consult kilnman follow recommendations add methylprednisolone and discontinue Singulair per kilnman 4/5: Dr. Rosario request to continue prednisone 40 mg daily p.o. for 2 more days, and also recommend to start Symbicort 2 puff to 12 hour. Continue rest of her home medications at discharge Acute respiratory failure with hypoxemia Patient is placed on BiPAP BMP showed metabolic acidosis, bicarb 20, Follow ABG: PH is 7.473, pCO2 25.4, PO2 89.3, bicarb 18.2 Continue BiPAP and O2 therapy to keep pulse ox above 92 4/3: Patient needs BiPAP overnight, now patient is on high-flow oxygen 4/5: No O2 desaturation on room air, respiratory failure has resolved Sepsis versus SIRS Patient has leukocytosis 12,100 with left shift, Patient has a cough, flu and COVID negative X-ray shows no acute issues Suspecting sirs due to acute upper respiratory tract infection Follow-up blood culture, urine analysis Start azithromycin p.o., ceftriaxone 2 g IV daily Follow-up procalcitonin low dc abx HCG 17,835 Intrauterine device was removed on fiber 8 Pending ultrasound ER physician consulted Ob Follow recommendation 05/27 US reported Single, live intrauterine gestation.. Heart rate 115 bpm. Moderate subchorionic hemorrhage. Estimated Gestational Age:? 6 weeks, 1 days by crown rump length. KELLY by ultrasound 01/19/2024. Appreciate Ob consultation, management per Ob Subjective Date/time seen: 05/30/23 07:48 Interval history: I saw and examined patient . patient feels better today, patient denies shortness breath, chest pain, cough, abdomen pain, abdomen discharge from vagina Exam Narrative: GENERAL: Pleasant, in no acute distress. Well-nourished. - EYES: EOMI. Anicteric. - HENT: Moist mucous membranes. - LUNGS: Clear to auscultation bilaterally, no wheezing, rhonchi, or rales. - CARDIOVASCULAR: Regular rate and rhythm. No murmur. No JVD. - ABDOMEN: Soft, non-tender and non-distended. No palpable masses. - EXTREMITIES: No edema. Peripheral pulses 2+. Non-tender. - NEUROLOGIC: No focal neurological deficits. CN II-XII grossly intact. - PSYCHIATRIC: Awake, Alert and oriented x 3. Appropriate mood and affect. - SKIN: No rashes or lesions. Warm. - LYMPH: No cervical lymphadenopathy. Objective Data Vital Signs Vital Signs: Vital Signs - 24 hr 05/29/23 08:15 05/29/23 08:18 05/29/23 08:26 Temperature Pulse Rate 82 86
--- NOTE | 2023-05-30 07:49 | PM.DS ---
DS: Admitting Diagnosis Discharge Date 05/30/23 Admitting Diagnosis (1) Acute respiratory failure with hypoxemia: ?Code(s): J96.01 - Acute respiratory failure with hypoxia ?Status:?Acute (2) Asthma exacerbation: ?Code(s): J45.901 - Unspecified asthma with (acute) exacerbation ?Status:?Acute (3) URI (upper respiratory infection): ?Qualifiers: ?URI type:?unspecified URI? Qualified Code(s):?J06.9 - Acute upper respiratory infection, unspecified ?Code(s): J06.9 - Acute upper respiratory infection, unspecified ?Status:?Acute (4) Sepsis: ?Code(s): A41.9 - Sepsis, unspecified organism ?Status:?Acute (5) SIRS (systemic inflammatory response syndrome): ?Code(s): R65.10 - Systemic inflammatory response syndrome (SIRS) of non-infectious origin without acute organ dysfunction ?Status:?Acute (6) : ?Code(s): Z34.90 - Encounter for supervision of normal , unspecified, unspecified trimester ?Status:?Acute DS: Discharge Diagnosis Discharge Diagnosis (1) Acute respiratory failure with hypoxemia: Code(s): J96.01 - Acute respiratory failure with hypoxia Status: Acute (2) Asthma exacerbation: Code(s): J45.901 - Unspecified asthma with (acute) exacerbation Status: Acute (3) URI (upper respiratory infection): Qualifiers: URI type: unspecified URI Qualified Code(s): J06.9 - Acute upper respiratory infection, unspecified Code(s): J06.9 - Acute upper respiratory infection, unspecified Status: Acute (4) Sepsis: Code(s): A41.9 - Sepsis, unspecified organism Status: Acute (5) SIRS (systemic inflammatory response syndrome): Code(s): R65.10 - Systemic inflammatory response syndrome (SIRS) of non-infectious origin without acute organ dysfunction Status: Acute (6) : Code(s): Z34.90 - Encounter for supervision of normal , unspecified, unspecified trimester Status: Acute DS: Summary Hospital Course Hospital Course: 27 years old a day with history of asthma, present ED with a chief complaint of cough, shortness a breath.? Patient has been having cough in past 2 days, and developed shortness today.? Patient denies fever, chills.? Patient came to ED for evaluation and treatment, upon arrival in the ED, patient was afebrile, pressure stable.? Patient was found have hypoxemia, and labored breathing.? Patient received multiple treatments with albuterol and Atrovent nebulizer, magnesium sulfate, prednisone 40 mg 1 dose.? Patient still had significant dyspnea, patient was placed on BiPAP.? Labs showed leukocytosis 12,100, bicarbonate 20, hCG 56056.? Patient states her intrauterine device was removed, and her last menstrual period was on April 03.? Flu and COVID test negative.? Chest x-ray shows no acute cardiopulmonary issues.? Patient denies history of intubation for asthma exacerbation The following med issues have been addressed during hospitalization Asthma exacerbation Patient has a history of asthma Patient has been having cough in past 2 days, and developed severe dyspnea Upon arrival in ED, patient was found have a deeper breath a Patient received multiple doses of albuterol nebulizer, prednisone p.o. 40 mg once, patient still has severe dyspnea Start Pulmicort nebulizer 0.75 mg once and q.12 hour Start Singulair 10 mg once a day Start DuoNeb scheduled q.6 hours, albuterol nebulizer q.4 hours as needed 4/3: Patient feels better today, shortness of breath is improving Consult it administrative assistant follow recommendations add methylprednisolone and discontinue Singulair per it administrative assistant 4/5: Dr. Rosario request to continue prednisone 40 mg daily p.o. for 2 more days, and also recommend to start Symbicort 2 puff to 12 hour. Continue rest of her home medications at discharge Acute respiratory failure with hypoxemia Patient is placed on BiPAP BMP showed metabolic ac
[2023-05-30] MEDS: BUDESONIDE RESPULE NEB 0.5 MG/2 ML AMP INHALATION (08:16)
[2023-05-30] MEDS: predniSONE 20 MG TABLET 40 MG PO (08:58)
[2023-05-30] MEDS: MULTIVIT/MIN/PREN/FOL AC/IRON TABLET 1 TAB PO (08:58)
--- NOTE | 2023-05-30 09:51 | PM.PNPUL ---
Progress Note: A&P Assessment and Plan (1) Asthma exacerbation: Code(s): J45.901 - Unspecified asthma with (acute) exacerbation Status: Acute Assessment and Plan: Patient has a history of asthma diagnosed at age less than 1 year, required medicines since then. Patient is Advair was discontinued in 12/2022 and she was on Zyrtec, Flonase and albuterol p.r.n.. She remained uncontrolled clinically with wheezes, nocturnal awakenings, activity limitations. Patient is is also and with previous she had worsening asthma in her 2nd and 3rd trimester. Currently the patient has an asthma exacerbation and she is 80% back to normal after receiving prednisone, bronchodilators, montelukast, azithromycin. Her D-dimer is negative. Her chest x-ray is negative. Her COVID, influenza and RSV RT PCR is negative. Her eosinophil count on admission was 435 per micro L. Plan: Patient has diffuse inspiratory and expiratory wheezes currently I will place her on Solu-Medrol 20 mg IV q.6 hours. She has no evidence of an infection and I will discontinue azithromycin. I will increase the frequency of her DuoNeb from q.6 hours to q.4 hours. I will decrease her nebulized budesonide to 0.5 mg q.12 hours. I will discontinue her montelukast at this time and see if we can control her with steroids and bronchodilators alone. Patient is and her goal saturation should be greater than 95 and I will wean her oxygen accordingly. Currently she is on 3 L nasal cannula. Will follow with you. 05/29/23: Needs to improve but still feels her breathing is tight. Her cough is back to her baseline. She has minimal phlegm. She has walked in her room to the restroom and has no complaints of dyspnea on exertion. When I enter the room she was on 2 L nasal cannula saturations 96%. I decreased her to room air and after 6 minutes her saturations were 92%. She had no wheezing on normal respiration. Plan: I will discontinue her Solu-Medrol [address] her on prednisone 40 mg 1st dose today. I will continue DuoNebs q.4 hours and continued nebulized budesonide 0.5 mg q.12 hours. Goal saturation 90-94% and wean FiO2 accordingly. If the patient remains clinically stable will consider discharge on 05/30/2023 on these pulmonary medications: Prednisone 40 mg p.o. q.day times 2 days Symbicort 160-4.5 at 2 puffs b.i.d.. Rescue Symbicort 160-4.5 at 1-2 puffs q.4 hours p.r.n. shortness of breath or wheezing Cetirizine 10 mg p.o. q.day p.r.n. sinus congestion. Flonase 2 sprays each nostril twice a day p.r.n. nasal congestion. Follow-up in the Pulmonary Clinic in 3-4 weeks. I gave her our business card and informed our director it project. Discussed with Dr. Tanner, will sign off Subjective Date/time seen: 05/30/23 09:51 Interval history: ?05/28/2023:? This is a new patient consult for asthma exacerbation requiring BiPAP.? Patient has a history of asthma diagnosed under 1 year.? She was treated with albuterol and has been on medications on and off since then.? She was admitted to the hospital yearly in December as a kid up until age 10 and since then has not been admitted to the hospital. ? At age 7 she had snoring and was diagnosed with obstructive sleep apnea and had her adenoids removed.? Her snoring improved after that but she never had a repeat sleep study. The patient tells me she has never been intubated.? The patient had an ASA a survey [place] in January of 2024 requiring prednisone.? Her previous exacerbation to that was in April of 2022 requiring prednisone. On 06/14/2022 the patient had PFTs demonstrated a mild obstructive defect with a normal FEV1, bronch positive bronchodilator response and normal lung volumes and normal DLCO.? The patient had been maintained on Advair and in December of 2022 her PCP discontinue the Advair as it was felt she had only seasonal allergy.? She was started on Zyrtec and Flonase 1 spray q.day.? She was prescribed
--- NOTE | 2023-05-30 10:35 | PC.NURSE ---
On 05/30/23, the student, [Bobby Contreras], provided care and completed [facility] documentation on this patient. I have reviewed the student's documentation and agree with the findings.
--- NOTE | 2023-05-30 11:03 | PM.OBPNLAB ---
Pain Control Date/time seen: 05/30/23 11:03 Comments: much improved breathing home on inhaler and steroids
== END 2023-05-30 11:09 | disposition home or self-care (01) | DRG 566 ==
LOC: ANHED 14:05 → ANHICU 20:10 → ANH2MED 05-29 01:16
PROVIDERS: Student in an Organized Health Care Education/Training Program; Admitting Provider Hospitalist; Emergency Provider Student in an Organized Health Care Education/Training Program; PCP Family Medicine; Visit Provider Hospitalist
DX: O26.891 Other specified pregnancy related conditions, first trimester (principal); R65.11 Systemic inflammatory response syndrome (SIRS) of non-infectious origin with acute organ dysfunction; O99.511 Diseases of the respiratory system complicating pregnancy, first trimester; J96.01 Acute respiratory failure with hypoxia; J45.901 Unspecified asthma with (acute) exacerbation; Z3A.01 Less than 8 weeks gestation of pregnancy
CPT/HCPCS: 36415; 36600; 71045; 76817; 80048; 81001; 82805; 82948; 83735; 84100; 84702; 85025; 85027; 85380; 87040; 87637; 94002; 94640; 96365; 99285; A9270; G0378; J2919; J3475; J7030; J7512

== ENCOUNTER 2023-10-28 11:06 | Outpatient (RCR) | payer BC, SELFPAY ==
[2023-10-29] MEDS: RHO(D) IMMUNE GLOBULIN 300 MCG/2 ML SYRINGE IM (10:30)
== END 2024-01-26 23:59 | disposition home or self-care (01) ==
LOC: ANHLAB 11:06
PROVIDERS: PCP Family Medicine; Visit Provider Obstetrics & Gynecology
DX: O36.0990 Maternal care for other rhesus isoimmunization, unspecified trimester, not applicable or unspecified (principal); Z3A.00 Weeks of gestation of pregnancy not specified
CPT/HCPCS: 36415; 85461; 86850; 86900; 86901; 90384; 96372; J2790

== ENCOUNTER 2023-12-10 17:49 | Observation (INO) | payer BC, SELFPAY ==
[2023-12-10] VITALS (35 sets, daily range): BP systolic 107–133; BP diastolic 68–81; PULSE 85–110; O2SAT 96–100; BMI 40.8
--- NOTE | 2023-12-10 18:49 | PC.NURSE ---
Called Dr. Odom, update on pt, contractions, and blood pressure. Orders received to administer terbutaline 0.25 mg, perform cervical exam, and draw urinalysis.
[2023-12-10] MEDS: TERBUTALINE SULFATE 1 MG/ML VIAL 0.25 MG SUB-Q (19:23)
[2023-12-10 19:53] LABS: Add Urine Microscopic? YES; Appearance Urine Cloudy (Clear); Bacteria Urine Rare /hpf; Bilirubin Urine Negative (Negative); Blood Urine Negative (Negative); Color Urine Yellow (Yellow); Glucose Urine UA Negative (Negative); Ketones Urine Negative (Negative); Leukocyte Esterase Ur 2+ LEU/UL (Negative); Nitrate Urine Negative (Negative); Non Pathogenic Casts 0-2; Protein Urine Negative (Negative); RBC Urine 0-2 /hpf (0-2); Specific Grav Ur 1.006 (1.001-1.035); Squamous Epithelial Cell Urine Moderate /hpf (Few); Urobilinogen Urine 0.2 mg/dL (<2.0)
--- NOTE | 2023-12-10 20:07 | OBADM ---
This patient, Ashley A [place], admitted to the OB room OB Post 116 for observation. Patient/family oriented to hospital policies and general routines including ID bracelet, bed and alarms, visiting hours, pain management, procedures, bathroom and other care routines, personal items, smoking policy, room service/diet, and visiting hours. Patient/Family are encouraged to report perceived risks to care and to ask questions if they do not understand what they are told or what they should do.
--- NOTE | 2023-12-10 20:37 | PC.NURSE ---
Updated Dr. Odom on pt, contractions, cervical exam, and labs. Orders received to discharge pt with instructions to keep next scheduled appointment and when to return to the unit.
--- NOTE | 2023-12-10 20:56 | PC.NURSE ---
Pt discharged with instructions to keep next scheduled appointment and when to return to the unit, pt verbalizes understanding.
--- NOTE | 2023-12-21 08:08 | PM.OBTRLD ---
OB - Triage/Final Diagnosis Visit Information Comments/Additional reasons for admission: I have assessed the risk for this patient, Ashley Brewster, and determined that she would benefit from observation care. Evaluation Laboratory results: Laboratory Tests 12/10/23 19:28 Urine Color Yellow Urine Appearance Cloudy H Urine pH 7.0 Ur Specific [place] 1.006 Urine Protein Negative Urine Glucose (UA) Negative Urine Ketones Negative Ur Blood (Man) Negative Urine Nitrate Negative Urine Bilirubin Negative Urine Urobilinogen 0.2 Leukocyte Esterase Rfl 2+ H Urine RBC 0-2 Urine WBC 11-20 H Ur Squamous Epith Cells Moderate Urine Bacteria Rare Urine Casts 0-2 Final Diagnosis (1) False labor: Code(s): O47.9 - False labor, unspecified Status: Acute
== END 2023-12-10 20:56 | disposition home or self-care (01) ==
PROVIDERS: Obstetrics & Gynecology; Admitting Provider Obstetrics & Gynecology; PCP Family Medicine; Visit Provider Obstetrics & Gynecology
DX: O47.03 False labor before 37 completed weeks of gestation, third trimester (principal); Z3A.34 34 weeks gestation of pregnancy
CPT/HCPCS: 59025; 81001; 87086; 96372; G0378; G0379; J3105

== ENCOUNTER 2024-01-05 10:08 | Outpatient (RCR) | payer BC, SELFPAY ==
[2023-12-03 09:46] VITALS: BMI 41.0
[2023-12-03 10:04] VITALS: BP 113/64; PULSE 106
[2023-12-10 09:56] VITALS: BP 132/70; PULSE 97
[2023-12-17 10:06] VITALS: BP 136/70; PULSE 92
[2023-12-24 08:58] VITALS: BP 141/75; PULSE 104
[2023-12-31 09:55] VITALS: BP 142/80; PULSE 93
[2024-01-05 10:41] VITALS: BP 137/79; PULSE 104
== END 2024-01-21 17:46 | disposition home or self-care (01) ==
LOC: ANHOBOP 10:08
PROVIDERS: PCP Family Medicine; Visit Provider Obstetrics & Gynecology
DX: O10.913 Unspecified pre-existing hypertension complicating pregnancy, third trimester (principal); Z3A.33 33 weeks gestation of pregnancy
CPT/HCPCS: 59025

== ENCOUNTER 2024-01-07 04:50 | Inpatient (IN) | payer BC, SELFPAY ==
[2024-01-07] VITALS (27 sets, daily range): BP systolic 112–145; BP diastolic 49–92; PULSE 73–113; RESP 16–18; TEMP 36.5–37.6; O2SAT 96; BMI 43.4
--- NOTE | 2024-01-07 05:51 | LDADM ---
This patient, Ashley A [place], was admitted to Labor/Delivery/Recovery 106 on 01/07/24 at 05:32. Plans for labor, pain management and were discussed with patient. Patient/family oriented to hospital policies and general routines including ID bracelet, bed and alarms, visiting hours, pain management, procedures, bathroom and other care routines, personal items, smoking policy, room service/diet and guest tray routines, security routines, and visiting hours. Patient/Family are encouraged to report perceived risks to care and to ask questions if they do not understand what they are told or what they should do. See OBIX for further documentation.
[2024-01-07 05:59] LABS: Basophils Percent Auto 0.3 % (0.2-1.2); Eosinophils Absolute Auto 0.1 K/mm3 (0-0.3); Hematocrit 33.3 % (37.0-47.0); Hemoglobin 10.7 g/dL (12.0-15.0); Immature Granulocyte Absolute 0.07 K/mm3 (0.00-0.031); Immature Granulocyte Percent A 0.6 % (0-0.5); Lymphocytes Absolute Auto 2.17 K/mm3 (0.9-3.2); Lymphocytes Percent Auto 19.3 % (18.3-44.2); Mean Corpuscular HGB Conc 32.1 g/dl (32-36); Mean Corpuscular Hemoglobin 26.9 pg (26-34); Mean Corpuscular Volume 83.7 fl (80-100); Mean Platelet Volume 11.1 fl (7.4-10.4); Monocytes Absolute Auto 0.8 K/mm3 (0.1-0.6); Monocytes Percent Auto 6.9 % (2.6-8.5); Neutrophils Absolute Auto 8.1 K/mm3 (1.3-6.7); Neutrophils Percent Auto 71.9 % (45.5-73.1); Platelet Count Result 273 k/mm3 (150-375); Red Blood Count 3.98 M/mm3 (4.2-5.4); Red Cell Distribution Width 16.8 % (11.5-14.5); White Blood Count 11.2 K/mm3 (4.5-10.0)
[2024-01-07] MEDS: AMPICILLIN 2 GM/NS 100 ML 2 GM/100 ML BAG IVPB (06:00)
[2024-01-07] MEDS: OXYTOCIN 30 UNITS/NS 500 ML 30 UNITS/500 ML BAG IV CONT (06:07)
[2024-01-07] MEDS: LACTATED RINGERS 1,000 ML 125 ML IV CONT (06:07)
[2024-01-07 06:54] LABS: Rapid Plasma Reagin Non-Reactive (NonReactive)
[2024-01-07 07:08] LABS: HIV 1/2 Ab P24 Ag Result Negative (Negative)
--- NOTE | 2024-01-07 07:09 | PM.IMHP ---
H&P: HPI History of Present Illness Date/Time: 01/07/24 07:09 Chief Complaint: Gestational hypertension Narrative: 28-year-old 2 para 1 whose last menstrual period is unknown, EDC is 01/21/2024, confirmed by 7 week ultrasound presents for induction of labor at 38 weeks gestation. She is on methyldopa for blood pressure. She also has severe asthma was hospitalized in the ICU in the early part of the but is admitted okay since. She is positive for group B strep she received RhoGAM at 28 weeks she failed her 1hour diabetic test but passed 3/4 under 3hour PMFSH Past Medical History Medical History History of gestational diabetes (~2019) History of pre-eclampsia (~2019) Seasonal allergies Seasonal asthma Vitamin D deficiency Family History Family History Sibling Asthma Social History Social History Smoking status: Never smoker Alcohol intake: never Substance use: never Substance use type: does not use Do You Feel Safe in your Home?: Yes Lack of Transportation: No Lack of Food: Never True Current Housing: I Have Housing Concerned About Future Housing: No Difficulty Paying Gas/Electric Bills: No Difficulty Paying for Meds: No Currently Unemployed: No Education: High School Diploma/GED Difficulty w/ Childcare or Family Care: No Living arrangements: with family Occupation/Education: occupation Gender identity (if verbalized by the patient): Female Spiritual care concerns: No Agree to blood products: Yes Meds Home Medications and Allergies Home Medications Medication Instructions Recorded Confirmed Type fluticasone propionate 50 2 spray intranasal DAILY #16 grams 03/11/23 01/07/24 Rx mcg/actuation nasal spray,suspension (Children's Flonase Allergy Relief) cetirizine 10 mg tablet (Zyrtec) 10 mg PO DAILY PRN ALLERGIES #30 05/30/23 01/07/24 Rx tabs methyldopa 250 mg tablet 250 mg PO TID 10/22/23 01/07/24 History budesonide-formoterol HFA 160 2 puff inhalation DAILY 12/03/23 01/07/24 History mcg-4.5 mcg/actuation aerosol inhaler (Symbicort) vit no.95-ferrous 1 tablet PO DAILY 12/10/23 01/07/24 History fumarate 28 mg-folic acid 800 mcg tablet () prednisone 10 mg tablet 10 mg PO DAILY 12/31/23 12/31/23 History Allergies Allergy/AdvReac Type Severity Reaction Status Date / Time APPLES Allergy Unknown Itching Uncoded 01/07/24 06:06 Vital Signs Vital Signs - 24 hr 01/07/24 05:31 01/07/24 05:32 01/07/24 05:45 Temperature Pulse Rate 76 88 81 Blood Pressure 124/67 124/59 L 127/64 Oxygen Delivery 01/07/24 06:00 01/07/24 06:15 01/07/24 06:30 Temperature 98.6 F Pulse Rate 85 90 89 Blood Pressure 124/59 L 127/65 133/67 Oxygen Delivery 01/07/24 07:01 01/07/24 05:50 Temperature Pulse Rate 84 Blood Pressure 135/92 H Oxygen Delivery Room Air Exam Const: General: cooperative, healthy appearing and comfortable Nutritional Appearance: average body habitus Orientation/consciousness: oriented to person, oriented to place and oriented to time HENMT: Head: normal to inspection Resp: Effort & Inspection: normal respiratory effort Cardio: Rate: regular rate Rhythm: regular rhythm Heart sounds: S1 normal heart sound present and S2 normal heart sound present GI: Inspection: normal to inspection ( soft gravid uterus) Auscultation: normal bowel sounds : Speculum Exam - Cervix: normal appearance of the cervix ( cervix 3/75/1. AROM clear. FHTs reassuring) H&P: Results Labs Labs: Short CBC 01/07/24 Range/Units 05:42 WBC 11.2 H (4.5-10.0) K/mm3 Hgb 10.7 L (12.0-15.0) g/dL Hct 33.3 L (37.0-47.0) % Plt Count 273 (150-375) k/mm3 Assessment and Plan Assessment and plan (1) Term : Code(s): Z34.90 - Encounter for supervision of normal , unspecified, unspecified trimester Status: Acute (2) Positive testing for group B Streptococcus: Code(s): B95.1 - Streptococcus, group B, as the cause of diseases classified elsewhere Status: Acute (3) Chronic hypertension: Code(s): I10 - Essential (primary) hypertension Status: Acute (4) Asthma: Code(s): J45.909 - Unspecified asthma, uncomplicated Status: Acute Assessment and Plan: medical induction labor. Spontaneous vaginal delivery is expected. She is an epidural candidate.
--- NOTE | 2024-01-07 07:54 | PHAR ---
The patient's home med of Methyldopa 250mg has been verified.
[2024-01-07] MEDS: [UNRECOGNIZED DRUG - OTHER] PO (08:03)
[2024-01-07] MEDS: METHYLDOPA 250 MG PO (08:03)
[2024-01-07] MEDS: AMPICILLIN 1 GM/NS 50 ML 1 GM/50 ML BAG IVPB (10:16)
--- NOTE | 2024-01-07 12:16 | PM.OBPNLAB ---
Pain Control Date/time seen: 01/07/24 12:16 Pain control: tolerating well Pelvic Exam Dilation (cm): 5 Effacement (%): 75 station: -2 Amniotic membrane status: Leaking
--- NOTE | 2024-01-07 14:03 | PM.OBPRVD ---
OB - Vaginal Delivery Note Procedure Delivery date: 01/07/24 Events: Gestational Hypertension Induction method: AROM Delivery augmentation: Pitocin Delivery monitor: External FHT Route of delivery: Episiotomy description: None Laceration Description: Perineal - 1st Degree Delivery repair: vicryl Specimen: No Quantitative Blood Loss (ml): 61 Anesthesia type: Local Disposition: Floor Complications: No immediate complications Narrative: Patient was admitted for induction of labor at 38 weeks gestation secondary to elevated blood pressures she got 2 doses of ampicillin when she was complete she pushed delivered head spontaneously in the MARA position. Nuchal cord checked noted loose x1 relieved around the occiput anterior posterior shoulder delivered spontaneously. Cord clamped 2 and cut placed in warmer given Apgars of 8 [id number]. Cord blood was drawn. Placenta delivered intact spontaneously 20 to Pitocin placed IV to help firm the uterus. After inspecting the vagina a small midline first-degree laceration was noted instilled with 1% xylocaine anesthesia in a [id number] suture placed she tolerated the procedure well blood loss estimated 61cc she did received 2 doses for ampicillin. Mom and baby doing fine at the time of dictation [place] Baby Date of : 01/07/24 Time of : 13:52 Gestational Age by Date: 38 Infant gender: Male presentation: vertex position: Right Occiput Anterior Placenta delivery description: Spontaneous Cord Vessel Description: 3 Vessels, Nuchal Cord, Loose and Reduced score one minute: 8 score five minutes: 9 Narrative: ampicillin x2 for group B strep
--- NOTE | 2024-01-07 14:05 | P.DS_ITS ---
DS: Admitting Diagnosis Discharge Date 01/08/2024 Admitting Diagnosis gestational hypertension/ term /group B strep/asthma DS: Discharge Diagnosis Discharge Diagnosis (1) Asthma: Code(s): J45.909 - Unspecified asthma, uncomplicated Status: Acute (2) Chronic hypertension: Code(s): I10 - Essential (primary) hypertension Status: Acute (3) Positive testing for group B Streptococcus: Code(s): B95.1 - Streptococcus, group B, as the cause of diseases classified elsewhere Status: Acute (4) Term : Code(s): Z34.90 - Encounter for supervision of normal , unspecified, unspecified trimester Status: Acute DS: Summary Hospital Course Reason for hospitalization: patient was admitted for induction of labor on . She underwent spontaneous vaginal delivery with 2 doses of ampicillin for group B strep Hospital Course: patient's hospital course unremarkable. She remained afebrile. She was up, voiding without difficulty, eating regular diet, ambulating, and generally without complaints. Time Spent with Patient Time attestation: Total time spent providing and/or coordinating discharge services: Exam Const: General: cooperative, healthy appearing and comfortable Nutritional Appearance: overweight Orientation/consciousness: oriented to person, oriented to place and oriented to time Resp: Effort & Inspection: normal respiratory effort Cardio: Rate: regular rate Rhythm: regular rhythm Heart sounds: S1 normal heart sound present and S2 normal heart sound present GI: Inspection: normal to inspection ( Fundus firm below umbilicus) DS: Data Data Completed and Pending Labs on day of discharge: Labs from last 24 hours 01/07/24 05:42 WBC 11.2 H RBC 3.98 L Hgb 10.7 L Hct 33.3 L MCV 83.7 MCH 26.9 MCHC 32.1 RDW 16.8 H Plt Count 273 MPV 11.1 H Immature Gran % (Auto) 0.6 H Neut % (Auto) 71.9 Lymph % (Auto) 19.3 [place] % (Auto) 6.9 Eos % (Auto) 1.0 Baso % (Auto) 0.3 Lymph # (Auto) 2.17 [place] # (Auto) 0.8 H Eos # (Auto) 0.1 Baso # (Auto) 0.0 Abs Immat Gran (auto) 0.07 H Absolute Neuts (auto) 8.1 H Absolute Nucleated RBC 0.000 Nucleated RBC % 0.0 RPR Non-reactive HIV 1&2 Ab/P24 Ag 4thGn Negative Blood Type A Negative Antibody Screen Negative Discharge Plan Discharge Attending physician on discharge: Yaya Patterson Discharging Clinician: Yaya Patterson Patient Disposition: Home, Self-Care Activity: may shower and pelvic rest Diet: heart healthy Patient Instructions: Antibiotic Form Stand Alone Forms: General Discharge Information Follow-up/Referrals: Yaya Patterson MD [Physician] - Discharge Medications: Continued methyldopa 250 mg tablet 250 mg PO TID cetirizine [Zyrtec] 10 mg tablet 10 mg PO DAILY PRN (Reason: ALLERGIES) Qty: 30 0RF budesonide-formoterol [Symbicort] 160-4.5 mcg/actuation HFA aerosol inhaler 2 puff inhalation DAILY PNV cmb#95-ferrous fumarate-FA [] 28 mg iron- 800 mcg Tablet 1 tablet PO DAILY prednisone 10 mg tablet 10 mg PO DAILY fluticasone propionate [Children's Flonase Allergy Rlf] 50 mcg/actuation spray,suspension 2 spray intranasal DAILY Qty: 16 2RF Rx Instructions: administer into each nostril Date of admission: 01/07/24 04:50 Primary Care Provider: Derian Elmore Admitting Provider: Yaya Patterson Attending physician on admission: Yaya Patterson Condition: Stable
[2024-01-07] MEDS: OXYTOCIN 30 UNITS/NS 500 ML 30 UNITS/500 ML BAG 125 UNITS IV CONT (14:26)
[2024-01-07] MEDS: BENZOCAINE 20% AER SPR (*SP) 56 GM CAN 1 SPRAY TOPICAL (16:00)
[2024-01-07] MEDS: WITCH HAZEL 40 PADS 1 PAD TOPICAL (16:00)
[2024-01-07] MEDS: ACETAMINOPHEN 325 MG TABLET 650 MG PO (19:25)
[2024-01-07] MEDS: DOCUSATE SODIUM 100 MG CAPSULE PO (19:26)
[2024-01-08 04:05] VITALS: BP 115/57; PULSE 95; RESP 16; TEMP 36.6; O2SAT 100
[2024-01-08 05:06] LABS: Hematocrit 31.4 % (37.0-47.0); Hemoglobin 9.7 g/dL (12.0-15.0)
--- NOTE | 2024-01-08 05:41 | P.PNOB_ITS ---
OB - PN: Subj Subjective Date/time seen: 01/08/24 05:41 Patient comments: no complaints and pain well controlled baby status: doing well OB - PN: Obj Data Labs 01/08/24 03:59 Labs: Laboratory Results - last 24 hr 01/07/24 01/08/24 05:42 03:59 WBC 11.2 H RBC 3.98 L Hgb 10.7 L 9.7 L Hct 33.3 L 31.4 L MCV 83.7 MCH 26.9 MCHC 32.1 RDW 16.8 H Plt Count 273 MPV 11.1 H Immature Gran % (Auto) 0.6 H Neut % (Auto) 71.9 Lymph % (Auto) 19.3 Ashley % (Auto) 6.9 Eos % (Auto) 1.0 Baso % (Auto) 0.3 Lymph # (Auto) 2.17 Ashley # (Auto) 0.8 H Eos # (Auto) 0.1 Baso # (Auto) 0.0 Abs Immat Gran (auto) 0.07 H Absolute Neuts (auto) 8.1 H Absolute Nucleated RBC 0.000 Nucleated RBC % 0.0 RPR Non-reactive HIV 1&2 Ab/P24 Ag 4thGn Negative Blood Type A Negative Antibody Screen Negative OB - PN A/P Plan day: 1 Plan: routine care, discharge home and follow up 6 weeks Time Spent With Patient Time: Total time spent is greater than 50% in coordination of care (as documented) at patient's floor/unit and/or counseling patient: Time with patient: less than 15 minutes Exam Const: General: cooperative, healthy appearing and comfortable Nutritional Appearance: average body habitus Orientation/consciousness: oriented to person, oriented to place and oriented to time Resp: Effort & Inspection: normal respiratory effort Cardio: Rate: regular rate Rhythm: regular rhythm Heart sounds: S1 normal heart sound present and S2 normal heart sound present GI: Inspection: normal to inspection
[2024-01-08] MEDS: MULTIVIT/MIN/PREN/FOL AC/IRON TABLET 1 TAB PO (06:34)
[2024-01-08] MEDS: DOCUSATE SODIUM 100 MG CAPSULE PO (06:34)
[2024-01-08] MEDS: POLYSACCHARIDE IRON COMPLEX 150 MG CAPSULE PO (06:34)
[2024-01-08 07:30] VITALS: BP 138/67; PULSE 93; RESP 18; TEMP 36.5; O2SAT 99
[2024-01-08 12:40] VITALS: BP 140/82; PULSE 88; RESP 16; TEMP 36.9; O2SAT 100
[2024-01-08] MEDS: RHO(D) IMMUNE GLOBULIN 300 MCG/2 ML SYRINGE IM (14:39)
[2024-01-10 08:01] VITALS: BP 137/69; PULSE 86; RESP 20; TEMP 36.6
== END 2024-01-08 14:38 | disposition home or self-care (01) | DRG 807 ==
LOC: ANHLDR 14:08 → ANHOB2 16:16
PROVIDERS: Admitting Provider Obstetrics & Gynecology; PCP Family Medicine; Visit Provider Obstetrics & Gynecology
DX: O13.4 Gestational [pregnancy-induced] hypertension without significant proteinuria, complicating childbirth (principal); Z37.0 Single live birth; Z3A.38 38 weeks gestation of pregnancy; O99.824 Streptococcus B carrier state complicating childbirth; O70.0 First degree perineal laceration during delivery; O69.81X0 Labor and delivery complicated by cord around neck, without compression, not applicable or unspecified; O99.52 Diseases of the respiratory system complicating childbirth; J45.909 Unspecified asthma, uncomplicated
CPT/HCPCS: 36415; 85014; 85018; 85025; 85460; 85461; 86592; 86703; 86850; 86900; 86901; 90384; A9270; G0432; J0290; J2590; J2790; J7120

== ENCOUNTER 2024-10-27 08:26 | Outpatient (CLI) | payer BC, MEDICAID, SELFPAY ==
[2024-10-27 13:26] LABS: Hematocrit 42.5 % (37.0-47.0); Hemoglobin 13.5 g/dL (12.0-15.0); Immature Granulocyte Percent A 0.3 % (0-0.5); Lymphocytes Absolute Auto 2.94 K/mm3 (0.9-3.2); Mean Corpuscular HGB Conc 31.8 g/dl (32-36); Mean Corpuscular Hemoglobin 26.9 pg (26-34); Mean Corpuscular Volume 84.8 fl (80-100); Nucleated Red Blood Cells Absolute Auto 0.000 K/mm3 (0.0-0.012); Nucleated Red Blood Cells Perc 0.0 % (0.0-0.2); Platelet Count Result 313 k/mm3 (150-375); Red Blood Count 5.01 M/mm3 (4.2-5.4); White Blood Count 8.8 K/mm3 (4.5-10.0)
[2024-10-27 13:36] LABS: Hemoglobin A1C 5.7 % (<5.7)
[2024-10-27 13:38] LABS: Alanine Aminotransferase 22 U/L (6-35); Albumin Level 4.4 g/dL (3.5-5.1); Alkaline Phosphatase 100 U/L (38-126); Anion Gap 9 mmol/L (4-12); Aspartate Amino Transferase 42 U/L (14-36); Bilirubin,Total 0.5 mg/dL (0.2-1.3); Blood Urea Nitrogen 9 mg/dL (7-17); Calcium 9.6 mg/dL (8.4-10.2); Carbon Dioxide 26 mmol/L (22-30); Chloride 101 mmol/L (98-107); Cholesterol 173 mg/dL (0-200); Estimated Glomerular Filt Rate > 60; Glucose 95 mg/dL (65-110); HDL Direct 33 mg/dL; Magnesium 2.0 mg/dL (1.6-2.3); Sodium 136 mmol/L (137-145); Total Protein 8.2 g/dL (6.3-8.2); Triglycerides 99 mg/dL (<150)
[2024-10-27 13:47] LABS: Potassium 4.1 mmol/L (3.4-5.0)
[2024-10-27 14:13] LABS: Thyroid Stimulating Hormone Reflex 1.190 uIU/mL (0.465-4.68)
[2024-10-27 14:33] LABS: Vitamin B12 707.0 pg/mL (239-931)
== END 2024-10-27 08:27 | disposition home or self-care (01) ==
LOC: ANHGOSHLAB 08:27
PROVIDERS: PCP Nurse Practitioner Family; Visit Provider Nurse Practitioner Family
DX: E66.9 Obesity, unspecified (principal); I10 Essential (primary) hypertension; E55.9 Vitamin D deficiency, unspecified; R73.9 Hyperglycemia, unspecified
CPT/HCPCS: 36415; 80053; 80061; 82306; 82607; 83036; 83735; 84443; 85025

== ENCOUNTER 2024-11-27 10:26 | Emergency (ER) | payer BC, MEDICAID, SELFPAY ==
[2024-11-27 10:41] VITALS: BP 126/79; PULSE 63; RESP 18; TEMP 37.1; O2SAT 100
--- NOTE | 2024-11-27 10:44 | ED.URI ---
HPI - URI/Sore Throat General Chief Complaint: Upper Respiratory Infection Stated Complaint: Throat Issues patient presents to the [facility] with complaints significant sore throat that began over the last day. Patient noted this morning looking in the back of her throat other tonsils are very large and have white patches all over them. Patient noted she does have a history of seasonal allergies and these have slightly then present but nothing significant or out of the ordinary for her. denies known fever, dizziness, shortness of breath, nausea, vomiting, diarrhea Related Data Home Medications ?Medication ?Instructions ?Recorded ?Confirmed ?Last Taken ?Type cetirizine 10 mg tablet (Zyrtec) 10 mg PO DAILY ALLERGIES 04/19/24 10/26/24 Unknown History fluticasone propionate 50 2 spray intranasal DAILY PRN 04/19/24 10/26/24 Unknown History mcg/actuation nasal spray,suspension (Children's Flonase Allergy Relief) Allergies Allergy/AdvReac Type Severity Reaction Status Date / Time No Known Allergies Allergy Verified 11/27/24 10:31 Review of Systems Constitutional: Constitutional: Reports as per HPI, Denies chills, Reports fatigue, Denies fever(s) and Denies weakness Eyes: Eyes: Reports no additional eye complaints ENT: Reports as per HPI, Denies vertigo, Denies dizziness, Reports nasal congestion (minimal- allergy related) and Reports sore throat Cardiovascular: Cardiovascular: Reports no additional cardiovascular complaints Respiratory: Respiratory: Reports as per HPI, Denies chest congestion, Denies cough, Denies dyspnea and Denies wheezing Gastrointestinal: Gastrointestinal: Reports as per HPI, Denies heartburn, Denies diarrhea, Denies nausea and Denies vomiting Genitourinary: Genitourinary: Reports no additional female genitourinary complaints Musculoskeletal: Musculoskeletal: Reports no additional musculoskeletal complaints Integumentary/Breasts: Skin/Breast: Reports as per HPI and Denies rash Neurologic: Denies vertigo, Denies dizziness, Reports headache(s), Denies numbness and Denies weakness Psychiatric: Psychiatric: Reports no additional psychiatric complaints Endocrine: Endocrine: Reports no additional endocrine complaints Hematologic/Lymphatic: Hematologic/Lymphatic: Reports no additional hematologic/lymphatic complaints Allergic/Immunologic: Allergic/Immunologic: Reports as per HPI, Denies lip swelling, Denies throat swelling, Denies tongue swelling and Denies wheezing Comments: seasonal allergies PMFSH Past Medical History Medical History (Updated 11/27/24 @ 10:59 by HEDY TorresC) Juan's palsy Vitamin D deficiency History of pre-eclampsia (~2019) History of gestational diabetes (~2019) Seasonal asthma Seasonal allergies Surgical History Surgical History (Updated 10/26/24 @ 13:23 by Paz Zambrano APRN) History of adenoidectomy Family History Family History Sibling Asthma Social History Social History Smoking status: Never smoker Alcohol intake: never Substance use: never Substance use type: does not use Do You Feel Safe in your Home?: Yes Lack of Transportation: No Lack of Food: Never True Current Housing: I Have Housing Concerned About Future Housing: No Difficulty Paying Gas/Electric Bills: No Difficulty Paying for Meds: No Currently Unemployed: No Education: High School Diploma/GED Difficulty w/ Childcare or Family Care: No Living arrangements: with family Occupation/Education: occupation Gender identity (if verbalized by the patient): Female Spiritual care concerns: No Agree to blood products: Yes Exam Const: General: healthy appearing and no acute distress Nutritional Appearance: well nourished Orientation/consciousness: patient oriented x3 Limitations: no limitations HENMT: Head: normal to inspection Ears: external ears normal and TM's normal bilaterally Face/Nose/Sinus: Normal external nose present and Normal nares present Face and sinus: normal facial exam and sinuses nontender Mouth: Yes Normal oral and palatal mucosa present, Yes lip normal and Yes moist mucous membranes Throat: posterior oropharynx abnormal Other: Moderate edema with erythema and exudate bilaterally Neck: Neck: normal visual inspection and lymphadenopathy ( bilateral anterior cervical) Resp: Effort & Inspection: normal respiratory effort Auscultation: clear to auscultation bilaterally Cardio: Rate: regular rate Rhythm: regular rhythm Skin: General skin exam: normal color Rashes: no rashes Wounds: no wounds Neuro: General: patient oriented x3 Speech: normal speech Gait exam (Neuro): Normal gait present Psych: Mental Status: mental status grossly normal Affect: normal affect Attitude: cooperative Course Course Level of Care: Express Care Visit Vital Signs Vital signs: Vital Signs Temperature 98.8 F 11/27/24 10:41 Pulse Rate 63 11/27/24 10:41 Respiratory Rate 18 11/27/24 10:41 Blood Pressure 126/79 11/27/24 10:41 Pulse Oximetry 100 11/27/24 10:41 Oxygen Delivery Room Air 11/27/24 10:41 Temperature 98.8 F 11/27/24 10:41 Pulse Rate 63 11/27/24 10:41 Respiratory Rate 18 11/27/24 10:41 Blood Pressure 126/79 11/27/24 10:41 Pulse Oximetry 100 11/27/24 10:41 Oxygen Delivery Room Air 11/27/24 10:41 MDM - URI/Sore Throat MDM Narrative Medical decision making narrative: centor criteria 3/4. Patient does not have fever for symptoms only present for [address] patient on amoxicillin for probable strep The patient was evaluated by myself in the [facility] care. History is obtained from patient who is an independent historian and physical exam was performed. Available medical records were reviewed at this time. Exam findings show no acute concerns or changes; patient is non-toxic appearing and is in no distress. Patient is appropriate for outpatient treatment and follow-up. I have evaluated and discussed social determinants of health with the patient that could potentially impact subsequent diagnosis and treatment plans. Differential diagnosis and treatment plan were discussed with the patient. Patient agrees with discussion and after shared medical decision making agrees with plan of care. All questions were answered to the patient's satisfaction. Differential Diagnosis Differential diagnosis: Likely upper respiratory infection, croup, otitis media, sinusitis, bronchitis, influenza and pharyngitis Medical Records Attestation: I reviewed the patient's medical records. Lab Data Attestation: I reviewed the patient's lab results. Lab results narrative: strep negative, treatment sent no culture needed Labs: Lab Results 11/27/24 Range/Units 10:39 POC Grp A Strep Screen Negative (Negative) Discharge Plan Discharge Clinical Impression: Acute infective tonsillitis Patient Disposition: Home Condition: Stable Instructions: Antibiotic Form, Tonsillitis (ED) Patient Language: Romanian Prescriptions: New amoxicillin 875 mg tablet 875 mg PO Q12H Qty: 20 0RF No Action cetirizine [Zyrtec] 10 mg tablet 10 mg PO DAILY fluticasone propionate [Children's Flonase Allergy Rlf] 50 mcg/actuation spray,suspension 2 spray intranasal DAILY PRN Rx Instructions: administer into each nostril albuterol sulfate 90 mcg/actuation HFA aerosol inhaler 2 puff inhalation Q4H PRN (Reason: shortness of breath or wheezing) Qty: 8.5 5RF mometasone 110 mcg/ actuation (30) aerosol powdr breath activated 2 inh inhalation DAILY Qty: 180 0RF Rx Instructions: administer 1 hour before bedtime albuterol sulfate 2.5 mg /3 mL (0.083 %) solution for nebulization 2.5 mg inhalation Q4-6H PRN (Reason: shortness of breath or wheezing) Qty: 90 1RF Zepbound 2.5 mg/0.5 mL pen injector 2.5 mg subcut WEEKLY Qty: 2 0RF Rx Instructions: for 4 weeks Wegovy 0.25 mg/0.5 mL pen injector 0.25 mg subcut WEEKLY Qty: 2 0RF Rx Instructions: administer weeks 1 through 4 of therapy Follow-up/Referrals: Derian Elmore MD [Primary Care Provider, [facility]] Time of Disposition: 11:00
[2024-11-27 10:50] LABS: EDSTREPNEGPOS1 Negative (Negative)
== END 2024-11-27 11:03 | disposition home or self-care (01) ==
PROVIDERS: Emergency Provider Nurse Practitioner Family; PCP Family Medicine
DX: J03.90 Acute tonsillitis, unspecified (principal); J45.909 Unspecified asthma, uncomplicated
CPT/HCPCS: 87880; 99213; G0463

== ENCOUNTER 2024-12-27 11:20 | Outpatient (CLI) | payer BC, MEDICAID, SELFPAY ==
--- NOTE | ~2024-12-27 | XR_ITS ---
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 Findings: No acute fracture or malalignment. No significant degenerative changes. Soft tissues unremarkable. Impression: No acute fracture or malalignment. Reviewed, dictated and finalized at location P. ING LOOM OPERATOR Impression: No acute fracture or malalignment.
== END 2024-12-27 11:21 | disposition home or self-care (01) ==
PROVIDERS: PCP Nurse Practitioner Family; Visit Provider Nurse Practitioner Family
DX: M79.675 Pain in left toe(s) (principal); S90.112A Contusion of left great toe without damage to nail, initial encounter; X58.XXXA Exposure to other specified factors, initial encounter
CPT/HCPCS: 73630

== ENCOUNTER 2025-01-16 18:27 | Emergency (ER) | payer BC, MEDICAID, SELFPAY ==
[2025-01-16] VITALS (7 sets, daily range): BP systolic 152; BP diastolic 82; PULSE 68–100; RESP 20–23; TEMP 36.7; O2SAT 99–100
--- NOTE | ~2025-01-16 | XR_ITS ---
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 Technique: 2 views obtained. Findings: The lungs are clear, no effusion. No pneumothorax. Heart is normal size. Mediastinal and hilar contours are within normal limits. Bony thorax no acute abnormality. Impression: No acute cardiopulmonary abnormality. Reviewed, dictated and finalized at location P. GER GAMES Impression: No acute cardiopulmonary abnormality.
--- NOTE | 2025-01-16 19:14 | ED_ITS ---
HPI - Asthma General Chief Complaint: Asthma Stated Complaint: asthma Time Seen by Provider: 01/16/25 19:02 History of Present Illness HPI Narrative: 29-year-old female with history of asthma presenting to the emergency department today with some difficulty breathing and chest tightness as well as rattling feeling in her chest with some wheezing. He patient states she has been using her nebulization treatments at home and taking hot showers was some intermittent relief of symptoms but they or worsening today. She has been having upper respiratory infection with a dry cough for last 3 weeks. Denies any fever chills. No traumatic injuries. Was otherwise in her normal state of health. No recent antibiotics or recent steroid use. Denies any nausea, vomiting, back pain, abdominal pain, diarrhea. Related Data Home Medications ?Medication ?Instructions ?Recorded ?Confirmed ?Last Taken ?Type cetirizine 10 mg tablet (Zyrtec) 10 mg PO DAILY ALLERG IES 04/19/24 12/27/24 Unknown History fluticasone propionate 50 2 spray intranasal DAILY PRN 04/19/24 12/27/24 Unknown History mcg/actuation nasal spray,suspension (Children's Flonase Allergy Relief) Allergies Allergy/AdvReac Type Severity Reaction Status Date / Time No Known Allergies Allergy Verified 01/16/25 18:32 Review of Systems Review of Systems: As reviewed above in HPI [facility] Past Medical History Medical History Juan's palsy Vitamin D deficiency History of pre-eclampsia (~2019) History of gestational diabetes (~2019) Seasonal asthma Seasonal allergies Surgical History Surgical History History of adenoidectomy Family History Family History Sibling Asthma Social History Social History Smoking status: Never smoker Alcohol intake: never Substance use: never Substance use type: does not use Do You Feel Safe in your Home?: Yes Lack of Transportation: No Lack of Food: Never True Current Housing: I Have Housing Concerned About Future Housing: No Difficulty Paying Gas/Electric Bills: No Difficulty Paying for Meds: No Currently Unemployed: No Education: High School Diploma/GED Difficulty w/ Childcare or Family Care: No Living arrangements: with family Occupation/Education: occupation Gender identity (if verbalized by the patient): Female Spiritual care concerns: No Agree to blood products: Yes Exam Narrative: GENERAL: [Well-appearing, well-nourished, and in no acute distress.] HEAD: [Normocephalic, atraumatic.] EYES: [PERRLA and EOMI.] ENT: Nares clear, no rhinorrhea or epistaxis. Mucous membranes moist. NECK: Supple. CHEST: crackles in bilateral lung bases. Some scattered wheezing appreciated. No tachypnea or restricted air entry. Dry cough noted. HEART: [Regular rate and rhythm]. No murmur heard. [Normal peripheral pulses.] EXTREMITIES: Normal range of motion. [No edema.] SKIN: Warm, dry, no rash. NEURO: [No focal deficits]. Alert and oriented [x3.] PSYCH: [Normal mood and affect.] Course Vital Signs Vital signs: Vital Signs Temperature 36.7 C 01/16/25 18:29 Pulse Rate 100 01/16/25 18:29 Respiratory Rate 20 01/16/25 18:29 Blood Pressure 152/82 H 01/16/25 18:29 Pulse Oximetry 100 01/16/25 18:29 Oxygen Delivery Room Air 01/16/25 18:29 Temperature 36.7 C 01/16/25 18:29 Pulse Rate 68 01/16/25 20:53 Respiratory Rate 20 01/16/25 20:53 Blood Pressure 152/82 H 01/16/25 18:29 Pulse Oximetry 100 01/16/25 21:01 Oxygen Delivery Room Air 01/16/25 21:01 MDM - Asthma MDM Narrative Medical decision making narrative: 29-year-old female with history of asthma presenting to the emergency department today with some difficulty breathing and chest tightness as well as rattling feeling in her chest with some wheezing. He patient states she has been using her nebulization treatments at home and taking hot showers was some intermittent relief of symptoms but they or worsening today. She has been having upper respiratory infection with a dry cough for last 3 weeks. Denies any fever chills. No traumatic injuries. Was otherwise in her normal state of health. No recent antibiotics or recent steroid use. Denies any nausea, vomiting, back pain, abdominal pain, diarrhea. She does have coarse breath sounds with crackles in bilateral bases and some scattered wheezing. No hypoxemia or tachypnea. 100% on room air. Pulse 100. No significant hypertension. will treat as potential asthma exacerbation secondary to upper respiratory infection versus pneumonia. She was given steroids loratadine pseudoephedrine and nebulized treatments. X-ray and COVID swabs obtained. patient's chest x-ray shows no solid consolidations but given her cough and respiratory complaints with rattling and coarse crackles on auscultation we will treat this as atypical pneumonia with azithromycin to cover mycoplasma. She felt better after nebulization treatments and steroids. Safe for discharge home at this time. Negative COVID flu RSV swabs. Patient will be sent home with azithromycin and prednisone and return precautions and follow-up instructions. Medical Records Attestation: I reviewed the patient's medical records. Lab Data Attestation: I reviewed the patient's lab results. Labs: Lab Results 01/16/25 Range/Units 19:18 Influenza A (RT-PCR) Negative (Negative) Influenza B (RT-PCR) Negative (Negative) RSV (RT-PCR) Negative (Negative) SARS-CoV-2 RNA (RT-PCR) Negative (Negative) Imaging Data Attestation: I personally reviewed and interpreted this imaging study as fo llows: My impression: Impressions Chest X-Ray 01/16/25 19:22 Impression: No acute cardiopulmonary abnormality. Discharge Plan Discharge Clinical Impression: Atypical pneumonia, Asthma exacerbation Patient Disposition: Home Condition: Stable Instructions: Antibiotic Form, Pneumonia (ED) Additional Instructions: symptoms consistent with atypical pneumonia without radiographic evidence of consolidation. This is likely triggering your asthma. We will treat this with a combination of antibiotics for several days as well as steroids for several days. Continue taking your nebulization and albuterol treatments at home. Follow-up with your regular primary care provider. Take [id number] cold and flu remedies as well for cough. Return with any emergent concerns. Patient Language: Bengali Prescriptions: New azithromycin [Zithromax Z-Jermaine] 250 mg tablet See Rx Instructions PO .COMPLEX Qty: 6 0RF Rx Instructions: For 250 mg dose pack: take 500 mg today (day 1), then 250 mg for 4 days (days 2-5) prednisone 50 mg tablet 50 mg PO DAILY 5 Days Qty: 5 0RF No Action cetirizine [Zyrtec] 10 mg tablet 10 mg PO DAILY fluticasone propionate [Children's Flonase Allergy Rlf] 50 mcg/actuation spray,suspension 2 spray intranasal DAILY PRN Rx Instructions: administer into each nostril albuterol sulfate 90 mcg/actuation HFA aerosol inhaler 2 puff inhalation Q4H PRN (Reason: shortness of breath or wheezing) Qty: 8.5 5RF mometasone 110 mcg/ actuation (30) aerosol powdr breath activated 2 inh inhalation DAILY Qty: 180 0RF Rx Instructions: administer 1 hour before bedtime albuterol sulfate 2.5 mg /3 mL (0.083 %) solution for nebulization 2.5 mg inhalation Q4-6H PRN (Reason: shortness of breath or wheezing) Qty: 90 1RF Wegovy 0.5 mg/0.5 mL pen injector 0.5 mg subcut WEEKLY Qty: 2 0RF Follow-up/Referrals: Paz Zambrano APRN [Primary Care Provider, Family Practice] Time of Disposition: 20:31
[2025-01-16] MEDS: LORATADINE/PSEUDOEPHEDRINE (*CRX) 10/240 MG TABLET ER 24 HR 1 TAB PO (19:25)
[2025-01-16] MEDS: dexAMETHasone SOD PHOS INJ 10 MG/ML 1 ML VIAL IM (19:26)
[2025-01-16] MEDS: IPRATROPIUM BR 0.02% INH SOLN 0.5 MG/2.5 ML VIAL 1 MG INHALATION (19:30)
[2025-01-16] MEDS: ALBUTEROL SULFATE NEB 2.5 MG/3 ML INH 10 MG INHALATION (19:30)
[2025-01-16 19:58] LABS: Influenza A QL RT-PCR Negative (Negative); Influenza B QL RT-PCR Negative (Negative); RSV RNA, RT-PCR Negative (Negative); SARS-CoV-2 RNA PCR Negative (Negative)
[2025-01-16] MEDS: AZITHROMYCIN 500 MG TABLET PO (20:58)
== END 2025-01-16 21:01 | disposition home or self-care (01) ==
PROVIDERS: Emergency Provider Student in an Organized Health Care Education/Training Program; PCP Nurse Practitioner Family
DX: J18.9 Pneumonia, unspecified organism (principal); J45.901 Unspecified asthma with (acute) exacerbation; Z20.822 Contact with and (suspected) exposure to COVID-19; E55.9 Vitamin D deficiency, unspecified
CPT/HCPCS: 71046; 87637; 94640; 96372; 99283; A9270; J1100

== ENCOUNTER 2025-02-08 17:44 | Outpatient (CLI) | payer BC, MEDICAID, SELFPAY | END 2025-02-08 17:45 | disposition home or self-care (01) | LOC: ANHLAB 17:46 | PROVIDERS: PCP Nurse Practitioner Family; Visit Provider Obstetrics & Gynecology | DX: Z32.01 Encounter for pregnancy test, result positive (principal) | CPT/HCPCS: 36415; 84702 ==

== ENCOUNTER 2025-02-10 14:46 | Outpatient (CLI) | payer BC, MEDICAID, SELFPAY | END 2025-02-10 14:47 | disposition home or self-care (01) | PROVIDERS: PCP Nurse Practitioner Family; Visit Provider Obstetrics & Gynecology | DX: Z32.01 Encounter for pregnancy test, result positive (principal) | CPT/HCPCS: 36415; 84702 ==